=== PATIENT | female | born 1935 | race Caucasian/White ===

== ENCOUNTER 2017-04-18 09:34 | Outpatient (CLI) | payer MEDICARE, OTHER | END 2017-04-18 09:35 | disposition critical access hospital (66) | LOC: EMS 09:34 | PROVIDERS: ATTEND Surgery | DX: R40.4 Transient alteration of awareness (principal) | CPT/HCPCS: A0425; A0429 ==

== ENCOUNTER 2017-04-18 09:49 | Inpatient (IN) | payer MEDICARE, OTHER ==
--- NOTE | 2017-04-18 10:12 | ED Physician Documentation ---
History of Present Illness - Stated complaint Stated Complaint: ALOC - Chief complaint Chief Complaint: Neuro - Additonal information Additional information: hx from pt 81 f new to [facility] and apparently [place] as we have no old records based on meds suspect pt has HTN DM hypothyroid parkinsons apparently she fell yesteday and hit her R shoulder and side of her head but was OK after thsi AM she was found sitting on side of her bed minimally responsive and incontinent with pinpoint pupils (not on narcotics) pt denies any pain - no COLLINS CP AP does report cough with phlegm no NVD urinary incont Review of Systems Constitutional: denies: Fever, Chills Cardiac: denies: Chest pain / pressure Respiratory: reports: Cough. denies: Dyspnea GI: denies: Abdominal Pain, Nausea, Vomiting, Diarrhea : reports: Incontinent Neurologic: reports: Altered mental status, Head injury Endocrine: denies: Easy bruising / bleeding Immunocompromised: denies: Immunocompromised PD PAST MEDICAL HISTORY - Allergies Allergies/Adverse Reactions: Allergies Allergy/AdvReac Type Severity Reaction Status Date / Time ciprofloxacin [From Cipro] Allergy Unknown Verified 04/18/17 10:11 ciprofloxacin HCl * Allergy Unknown Verified 04/18/17 10:11 [From Cipro] hydromorphone HCl * Allergy Unknown Verified 04/18/17 10:11 [From Dilaudid] levofloxacin [From Levaquin] Allergy Unknown Verified 04/18/17 10:11 sertraline HCl * Allergy Unknown Verified 04/18/17 10:11 [From Zoloft] PD ED PE NORMAL - Vitals Vital signs reviewed: Yes - General General: No: Alert and oriented X 3 (X2 person and place, slow to answer) - HEENT HEENT: Other (bruise to right jewish) - Neck Neck: No bony TTP (but altered so will image) - Cardiac Cardiac: RRR - Respiratory Respiratory: No respiratory distress, Clear bilaterally - Abdomen Abdomen: Soft, Non tender - Derm Derm: Normal color - Extremities Extremities: No deformity - 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 No: Alert and oriented X 3 (X 2) - Psych Psych: Other (sleepy) Results - Vitals Vitals: Vital Signs - 24 hr 04/18/17 04/18/17 04/18/17 09:55 11:04 11:05 Temperature 36.6 C Heart Rate 73 68 69 Respiratory 16 16 20 Rate Blood Pressure 149/73 H 144/70 H 139/74 H O2 Saturation 97 98 100 04/18/17 12:17 Temperature Heart Rate 73 Respiratory 20 Rate Blood Pressure 150/73 H O2 Saturation 97 Oxygen O2 Source Room air - EKG (time done) 1004 Rate: Rate (enter#) (71) Rhythm: NSR [place]: LAD, Anterior hemiblock Intervals: Normal SD, RBBB Ischemia: Normal ST segments - Labs Labs: Laboratory Tests 04/18/17 04/18/17 04/18/17 10:04 11:03 11:03 WBC 12.0 H RBC 3.19 L Hgb 8.8 L Hct 27.0 L MCV 84.6 MCH 27.6 MCHC 32.6 RDW 14.6 Plt Count 470 H MPV 5.4 L Neut # 8.9 H Lymph # 1.8 [place] # 1.1 H Eos # 0.1 Baso # 0.1 Absolute Nucleated RBC 0.01 Nucleated RBCs 0.1 Sodium 135 Potassium 4.0 Chloride 102 Carbon Dioxide 26 Anion Gap 7.0 BUN 21 H Creatinine 0.8 Estimated GFR (MDRD) 69 L Glucose 111 H Calcium 8.5 Total Bilirubin 0.5 AST 20 ALT < 10 L Alkaline Phosphatase 171 H Troponin I Total Protein 6.8 Albumin 3.0 L Globulin 3.8 Albumin/Globulin Ratio 0.8 L Lipase 13 L Urine Color YELLOW Urine Clarity CLEAR Urine pH 6.0 Ur Specific [place] <=1.005 Urine Protein NEGATIVE Urine Glucose (UA) NEGATIVE Urine Ketones NEGATIVE Urine Occult Blood NEGATIVE Urine Nitrite POSITIVE H Urine Bilirubin NEGATIVE Urine Urobilinogen 0.2 (NORMAL) Ur Leukocyte Esterase SMALL H Urine RBC 0-5 Urine WBC >25 H Urine WBC Clumps PRESENT Ur Squamous Epith Cells FEW Squamous Amorphous Sediment Moderate Urine Bacteria Many H Ur Microscopic Review INDICATED Urine Culture Comments INDICATED Urine Opiates Screen NEGATIVE Ur Oxycodone Screen NEGATIVE Urine Methadone Screen NEGATIVE Ur Propoxyphene Screen NEGATIVE Ur Barbiturates Screen NEGATIVE Ur Tricyclics Screen NEGATIVE Ur Phencyclidine Scrn NEGATIVE Ur Amphetamine Screen NEGATIVE U Methamphetamines Scrn NEGATIVE U Benzodiazepines Scrn NEGATIVE Urine Cocaine Screen NEGATIVE U Cannabinoids Screen NEGATIVE 04/18/17 11:03 WBC RBC Hgb Hct MCV MCH MCHC RDW Plt Count MPV Neut # Lymph # [place] # Eos # Baso # Absolute Nucleated RBC Nucleated RBCs Sodium Potassium Chloride Carbon Dioxide Anion Gap BUN Creatinine Estimated GFR (MDRD) Glucose Calcium Total Bilirubin AST ALT Alkaline Phosphatase Troponin I < 0.04 Total Protein Albumin Globulin Albumin/Globulin Ratio Lipase Urine Color Urine Clarity Urine pH Ur Specific [place] Urine Protein Urine Glucose (UA) Urine Ketones Urine Occult Blood Urine Nitrite Urine Bilirubin Urine Urobilinogen Ur Leukocyte Esterase Urine RBC Urine WBC Urine WBC Clumps Ur Squamous Epith Cells Amorphous Sediment Urine Bacteria Ur Microscopic Review Urine Culture Comments Urine Opiates Screen Ur Oxycodone Screen Urine Methadone Screen Ur Propoxyphene Screen Ur Barbiturates Screen Ur Tricyclics Screen Ur Phencyclidine Scrn Ur Amphetamine Screen U Methamphetamines Scrn U Benzodiazepines Scrn Urine Cocaine Screen U Cannabinoids Screen - Rads (name of study) CTH Radiology: See rad report (no acute) CT CS Radiology: See rad report (degen changes and HNP but no fx) PD MEDICAL DECISION MAKING - ED course ED course: UTI with profound AMS - given rocephin and will admit also anemic, no old to compare, hemodynamically stable, rec occult stools while admitted and iron studies etc Departure - Departure Disposition: 66 [facility] DC/Xfer Clinical Impression: Altered mental status Qualifiers: Altered mental status type: stupor Qualified Code(s): R40.1 - Stupor Urinary tract infection Qualifiers: Urinary tract infection type: site unspecified Hematuria presence: without hematuria Qualified Code(s): N39.0 - Urinary tract infection, site not specified Anemia Qualifiers: Anemia type: unspecified type Qualified Code(s): D64.9 - Anemia, unspecified Condition: Fair
[2017-04-18 10:25] LABS: BILIRUBIN,URINE NEGATIVE (NEGATIVE)
[2017-04-18 10:28] LABS: UA w/ MICROSCOPIC CHARGE YES
[2017-04-18 10:47] LABS: WBC,URINE >25 /HPF (0-5)
[2017-04-18 10:48] LABS: UR CULTURE IF IND INDICATED
--- NOTE | 2017-04-18 10:55 | CT Preliminary Report ---
Exam: CT Head W/O IMPRESSION: Generalized age-related cortical atrophic changes without evidence of acute intracranial abnormality. [facility] SITE ID: [id number]
--- NOTE | 2017-04-18 11:01 | CT Preliminary Report ---
Exam: CT Cervical Spine W/O IMPRESSION: 1. Arthritic changes at the C1-C2 articulation anteriorly. Laterally, these articulations are normal. No fractures or bony lesions. No scoliosis or listhesis. Mild fatty atrophy of the multifidus muscle s also seen. 2. C2-C3 show some disk space height loss otherwise normal and intact. 3. C3-C4 shows prominent facets and mild central bony bar. No central or foraminal stenosis. 4. C4-C5 shows disk space height loss and severe left and moderate right foraminal stenosis. Mild buck tral stenosis. Disk osteophyte complexes present. 5. C5-C6 shows disk osteophyte complex, AP distance is 12 mm. Mild central stenosis and mild bilatera l foraminal stenosis. 6. C6-C7 shows broad-based disk bulge, no central or foraminal stenosis. 7. C7-T1 show some disk space height loss, otherwise unremarkable. [facility] SITE ID: [id number]
--- NOTE | 2017-04-18 11:04 | CT Report ---
EXAM: CT HEAD EXAM DATE: 04/18/2017 10:37 a.m. CLINICAL HISTORY: Altered mental status. COMPARISON: None. TECHNIQUE: Multiaxial CT images were obtained from the foramen magnum to the vertex. IV contrast: Non e. Reformats: Coronal. In accordance with CT protocol optimization, one or more of the following dose reduction techniques w ere utilized for this exam: automated exposure control, adjustment of mA and/or KV based on patient s ize, or use of iterative reconstructive technique. FINDINGS: Parenchyma: No intraparenchymal hemorrhage. No evidence of mass, midline shift, or CT findings of acu te infarction. Lopez-white differentiation is distinct. Extraaxial Spaces: Normal for age. No subdural or epidural collections identified. Ventricles: The ventricles and cortical sulci are enlarged, consistent with age-related tissue loss. Sinuses: Imaged paranasal sinuses, orbits, and mastoids show no significant abnormality. Bones: No evidence of fracture or calvarial defect. Other: Diffuse chronic microangiopathic white matter changes are evident. IMPRESSION: Generalized age-related cortical atrophic changes without evidence of acute intracranial abnormality. [facility] Referring Provider Line: [phone] SITE ID: [id number]
[2017-04-18 11:09] LABS: BASOPHILS # (AUTO) 0.1 10^3/uL (0.0-0.1); BASOPHILS % (AUTO) 0.6 %; EOSINOPHILS # (AUTO) 0.1 10^3/uL (0.0-0.7); EOSINOPHILS % (AUTO) 0.9 %; HGB - HEMOGLOBIN 8.8 g/dL (12.0-16.0); LYMPHOCYTES # (AUTO) 1.8 10^3/uL (1.5-3.5); LYMPHOCYTES % (AUTO) 15.1 %; MEAN CORPUSCULAR HEMOGLOBIN 27.6 pg (27.0-31.0); MEAN CORPUSCULAR HGB CONC 32.6 g/dL (32.0-36.0); MEAN CORPUSCULAR VOLUME 84.6 fL (81.0-99.0); MEAN PLATELET VOLUME 5.4 fL (7.9-10.8); MONOCYTES # (AUTO) 1.1 10^3/uL (0.0-1.0); MONOCYTES % (AUTO) 9.5 %; NEUTROPHILS # (AUTO) 8.9 10^3/uL (1.5-6.6); NEUTROPHILS % (AUTO) 73.9 %; NUCLEATED RED BLOOD CELLS AUTO 0.1 /100WBC; RED BLOOD COUNT 3.19 10^6/uL (4.20-5.40); RED CELL DISTRIBUTION WIDTH 14.6 % (12.0-15.0)
[2017-04-18 11:20] LABS: ALBUMIN/GLOBULIN RATIO 0.8 (1.0-2.2); BILIRUBIN,TOTAL 0.5 mg/dL (0.2-1.0); BUN - BLOOD UREA NITROGEN 21 mg/dL (6-20); CALCIUM 8.5 mg/dL (8.5-10.3); CARBON DIOXIDE - CO2 26 mmol/L (21-32); CHLORIDE 102 mmol/L (101-111); CREATININE 0.8 mg/dL (0.4-1.0); GFR - MDRD 69 (>89); GLUCOSE 111 mg/dL (70-100); LIPASE 13 U/L (22-51); SODIUM 135 mmol/L (135-145); TOTAL PROTEIN 6.8 g/dL (6.7-8.2)
--- NOTE | 2017-04-18 11:40 | CT Report ---
EXAM: CT CERVICAL SPINE WITHOUT CONTRAST DATE: 04/18/2017 10:38 AM HISTORY: Neck pain. COMPARISONS: None. TECHNIQUE: Thin-section axial images were acquired of the cervical spine without contrast. Post-proce ssing: Coronal and sagittal reformats. Other: None. In accordance with CT protocol optimization, one or more of the following dose reduction techniques w ere utilized for this exam: automated exposure control, adjustment of mA and/or KV based on patient s ize, or use of iterative reconstructive technique. FINDINGS: Alignment: Normal. No scoliosis or spondylolisthesis. Bones: No fracture or bone lesion. Interspace Levels/Facets: C1-C2: Arthritic changes at the anterior C1-C2 articulation. Pseudoarticulation with the odontoid and clivus. Lateral articulations are normal. C2-C3: Disk space height loss, otherwise normal and intact. C3-C4: Prominent facets. Mild central bony bar is present. No stenosis. C4-C5: Disk space height loss, severe left and moderate right foraminal stenosis. Mild central stenos is secondary to disk/osteophyte complex. C5-C6: Disk/osteophyte complex at this level is also noted, with some indentation of the central concepcion l. AP distance is 12 mm. Mild central stenosis, mild bilateral foraminal stenosis. C6-C7: Broad-based disk bulge is noted. Prominent facets. No central or foraminal stenosis. C7-T1: Disk space height loss, otherwise unremarkable. Musculature: Mild fatty atrophy of the multifidus musculature. Other: The paravertebral and prevertebral soft tissues are normal. The lung apices are clear. IMPRESSION: 1. Arthritic changes at the C1-C2 articulation anteriorly. Laterally, these articulations are normal. No fractures or bony lesions. No scoliosis or listhesis. Mild fatty atrophy of the multifidus muscle also seen. 2. C2-C3 shows some disk space height loss, otherwise normal and intact. 3. C3-C4 shows prominent facets and a mild central bony bar. No central or foraminal stenosis. 4. C4-C5 shows disk space height loss and severe left and moderate right foraminal stenosis. Mild buck tral stenosis. Disk/osteophyte complex is present. 5. C5-C6 shows disk/osteophyte complex, AP distance is 12 mm. Mild central stenosis and mild bilatera l foraminal stenosis. 6. C6-C7 shows a broad-based disk bulge, no central or foraminal stenosis. 7. C7-T1 shows some disk space height loss, otherwise unremarkable. [facility] Referring Provider Line: [phone] SITE ID: [id number]
[2017-04-18] MEDS ORDERED: ONDANSETRON 4 MG/2 ML VIAL IVP PRN (14:38)
[2017-04-18] MEDS ORDERED: SODIUM CHLORIDE FLUSH 0.9% 10 ML SYRINGE IVP PRN (14:38)
[2017-04-18] MEDS ORDERED: ACETAMINOPHEN 325 MG TABLET PO PRN (14:38)
[2017-04-18] MEDS ORDERED: cefTRIAXone 1 GM VIAL IVP STA (14:46)
[2017-04-18 15:26] LABS: IMMATURE RETIC FRACTION 0.43; RED BLOOD COUNT 3.21 10^6/uL (4.20-5.40)
[2017-04-18 15:50] LABS: HEMOGLOBIN A1C 0.54 g/dL
--- NOTE | 2017-04-18 16:14 | HISTORY & PHYSICAL EXAMINATION ---
Chief Complaint - Chief Complaint Chief Complaint: altered mental status History of Present Illness - Admitted From Admitted From:: emergence department - History Obtained From Records Reviewed: reviewed History obtained from: records and ER provider - History of Present Illness HPI Comment/Other: This is a 81-year-old Cauc[place] female with significant past medical history of HTN, DM2, hypothyroid, Parkinsons, who present emergence department for evaluation of altered mental status. Patient is alert but a very poor historian due to current medical condition. When waking up the patient, she open her eye then she fall into sleep again. UDS test is negative. UA reveals positive of UTI. Patient's vital sign is stable. Patient appears new to [facility], we did not have her old records. Per ER provider reports, apparently she fell yesterday, no injury was reported. At today morning, patient was found minimally responsive. Then patient was brought to emergence department for further evaluation. CT of head unremarkable. CT of C-spinal at C4-5 reveals severe left and moderate right foraminal stenosis. lab test reveals significant results as BUN 21, creatinine 0.8, glucose 111, A1C 7.4, WBC 12, HGB 8.8, HCT 27, Plt 470, Alkaline phosphatase 171. patient is admitted for evaluation of altered mental status. Review of Systems - Other Findings Other Findings: patient could not provide information for ROS History - Past Medical History Cardiovascular: reports: Hypertension Neuro: reports: Parkinson's Endocrine/Autoimmune: reports: Type 2 diabetes, HyPOthyroidism GI: reports: GERD Musculoskeletal: reports: Osteoarthritis Other Past Medical History: Non Hodgkins lymphoma - Family & Social History Family History Comment/Other: patient could not provide information due to current patient's medical condition. - POLST Patient has POLST: Yes Meds/Allgy - Home Medications Home Medications: Ambulatory Orders Medication Instructions Recorded Confirmed Aspirin Chewable [St 81 mg PO DAILY 04/18/17 04/18/17 Aspirin] Atenolol 25 mg PO DAILY 04/18/17 04/18/17 Atenolol 50 mg PO DAILY PM 04/18/17 04/18/17 Calcitonin,[place],Synthetic 1 spray NS DAILY 04/18/17 04/18/17 [Miacalcin] Calcium Carbonate [Tums (Calcium 1,000 mg PO DAILY 04/18/17 04/18/17 Carbonate 500mg)] Carbidopa/Levodopa [Carbidopa-Levo 1 each PO TID 04/18/17 04/18/17 ER 50-200 Tab] Carbidopa/Levodopa 0.5 each PO TID 04/18/17 04/18/17 [Carbidopa-Levodopa 25-100 Tab] Cholecalciferol (Vitamin D3) 4,000 unit PO QDAC 04/18/17 04/18/17 [Vitamin D] Entacapone 100 mg PO QDLUNCH 04/18/17 04/18/17 Entacapone 200 mg PO BID 04/18/17 04/18/17 Glipizide [Glipizide ER] 5 mg PO DAILY 04/18/17 04/18/17 Lactobacillus Acidophilus 1 each PO DAILY 04/18/17 04/18/17 [Acidophilus] Levothyroxine [Synthroid] 175 mcg PO QDAC 04/18/17 04/18/17 Lisinopril 20 mg PO DAILY 04/18/17 04/18/17 Meclizine HCl [Motion Sickness 25 mg PO Q4H PRN 04/18/17 04/18/17 Relief] Propylene Glycol/Peg 400 1 drops OP Q2H 04/18/17 04/18/17 [Lubricant Eye Drops] Ropinirole HCl 1 mg PO TID 04/18/17 04/18/17 raNITIdine [Zantac] 150 mg PO BID 04/18/17 04/18/17 - Allergies Allergies/Adverse Reactions: Allergies Allergy/AdvReac Type Severity Reaction Status Date / Time ciprofloxacin [From Cipro] Allergy Unknown Verified 04/18/17 10:11 ciprofloxacin HCl * Allergy Unknown Verified 04/18/17 10:11 [From Cipro] hydromorphone HCl * Allergy Unknown Verified 04/18/17 10:11 [From Dilaudid] levofloxacin [From Levaquin] Allergy Unknown Verified 04/18/17 10:11 sertraline HCl * Allergy Unknown Verified 04/18/17 10:11 [From Zoloft] Exam - Vital Signs Reviewed Vital Signs: Yes Vital Signs: Vital Signs x48h Temp Pulse Resp BP Pulse Ox 04/18/17 15:01 72 18 160/76 H 98 04/18/17 13:54 69 14 154/75 H 99 04/18/17 12:17 73 20 150/73 H 97 04/18/17 11:05 69 20 139/74 H 100 04/18/17 11:04 68 16 144/70 H 98 04/18/17 09:55 36.6 C 73 16 149/73 H 97 - Physical Exam General Appearance: positive: No acute distress, Alert. negative: Anxious Eyes Bilateral: positive: Normal inspection, PERRL. negative: No lid inflammation, Conjunctivae nml ENT: positive: ENT inspection nml, Pharynx nml, No signs of dehydration. negative: Purulent nasal drainage, Pharyngeal erythema Neck: positive: Nml inspection, Thyroid nml, Trachea midline. negative: Thyromegaly, Lymphadenopathy (R), Lymphadenopathy (L), Tracheal deviation Respiratory: positive: Chest non-tender, No respiratory distress, Breath sounds nml. negative: Wheezes, Rales, Rhonchi Cardiovascular: positive: Regular rate & rhythm, No murmur, No gallop. negative : Tachycardia, Bradycardia, Systolic murmur, Diastolic murmur Peripheral Pulses: positive: 2+ Abdomen: positive: Non-tender, Nml bowel sounds, No distention. negative: Tenderness, Guarding, Rebound Back: positive: Nml inspection. negative: CVA tenderness (R), CVA tenderness (L ) Skin: positive: Color nml, No rash, Warm, Dry. negative: Cyanosis, Diaphoresis , Skin rash Extremities: positive: Non-tender, Nml appearance. negative: Joint swelling, Jacquie's sign/cords Neurologic/Psychiatric: positive: Sensation nml. negative: Facial droop, Slurred/abnml speech, Depressed mood/affect Conclusion/Plan - Problem List (1) Altered mental status Conclusion/Plan: may secondary to UTI, delirium. UDS is negative test B12, TSH ,ammonia neuro check on tele, vital Q4H Qualifiers: Altered mental status type: disorientation Qualified Code(s): R41.0 - Disorientation, unspecified (2) UTI (urinary tract infection) Conclusion/Plan: rocephin, follow up UA culture Qualifiers: Urinary tract infection type: site unspecified Hematuria presence: without hematuria Qualified Code(s): N39.0 - Urinary tract infection, site not specified (3) Anemia Conclusion/Plan: HGB now 8.8, HCT 27. order Occult stool blood, iron study setting, follow up Qualifiers: Anemia type: unspecified type Qualified Code(s): D64.9 - Anemia, unspecified (4) DM2 (diabetes mellitus, type 2) Conclusion/Plan: slide scale now. check A1C will resume home medication after reconciliation. (5) HTN (hypertension) Conclusion/Plan: will resume home meds, vital, tele monitor (6) Hypothyroid Conclusion/Plan: check TSH, resume home meds (7) Parkinson disease Conclusion/Plan: stable, will resume home meds after reconciliation of home meds (8) DVT prophylaxis Conclusion/Plan: SCD and with Lovenox - Lab Results Fish Bones: 04/18/17 11:03 04/18/17 11:03 Issues/Core Measures - Anticipated LOS Anticipated Stay Length: 2 or more midnights (pt is appear mental status altered , UTI, profound anemia, may need 2 or more nights)
[2017-04-18 16:53] LABS: IRON 7 ug/dL (28-170); TOTAL IRON BINDING CAPACITY 295 ug/dL (250-450); TRANSFERRIN 211 mg/dL (192-382)
[2017-04-18] MEDS ORDERED: cefTRIAXone 1 GM in SODIUM CHLORIDE 0.9% 100ML 100 ML IV SCH (17:00)
[2017-04-18] MEDS ORDERED: ENALAPRILAT 1.25 MG/ML VIAL IVP PRN (17:02)
[2017-04-18] MEDS: SODIUM CHLORIDE FLUSH 0.9% 10 ML SYRINGE IVP SCH (17:08)
[2017-04-18] MEDS: INSULIN ASPART 300 UNIT/3 ML PEN SUBQ SCH ×2 (17:10→21:26)
[2017-04-18] MEDS: SODIUM CHLORIDE 0.9% 1,000 ML IV SCH (17:10)
[2017-04-18 17:18] LABS: FERRITIN 29.6 ng/mL (11.0-306.8)
[2017-04-18] MEDS ORDERED: MECLIZINE 12.5 MG TABLET PO PRN (17:43)
[2017-04-18] MEDS ORDERED: ZINC OXIDE 20% OINT 28.35 GM TUBE TOP ONE (20:20)
[2017-04-18] MEDS: CARBOXYMETHYLCELLULOSE OPHTH DROPS EACHEYE SCH ×2 (21:48→22:12)
[2017-04-18] MEDS: CARBIDOPA/LEVODOPA 25 MG/100 MG TABLET PO SCH (21:49)
[2017-04-18] MEDS: ATENOLOL 25 MG TABLET PO SCH (21:49)
[2017-04-18] MEDS: CARBIDOPA/LEVODOPA ER 50 MG/200 MG TABLET PO SCH (21:50)
[2017-04-19] MEDS: CARBOXYMETHYLCELLULOSE OPHTH DROPS EACHEYE SCH ×12 (00:21→21:41)
[2017-04-19] MEDS: SODIUM CHLORIDE 0.9% 1,000 ML IV SCH ×2 (06:00→16:57)
[2017-04-19] MEDS: SODIUM CHLORIDE FLUSH 0.9% 10 ML SYRINGE IVP SCH ×3 (06:03→21:41)
[2017-04-19] MEDS: CARBIDOPA/LEVODOPA 25 MG/100 MG TABLET PO SCH ×3 (06:13→21:41)
[2017-04-19] MEDS: CARBIDOPA/LEVODOPA ER 50 MG/200 MG TABLET PO SCH ×3 (06:13→21:41)
[2017-04-19] MEDS: LEVOTHYROXINE 100 MCG TABLET PO SCH (06:14)
[2017-04-19] MEDS: LEVOTHYROXINE 75 MCG TABLET PO SCH (06:14)
[2017-04-19 06:51] LABS: BASOPHILS # (AUTO) 0.1 10^3/uL (0.0-0.1); BASOPHILS % (AUTO) 1.1 %; EOSINOPHILS # (AUTO) 0.2 10^3/uL (0.0-0.7); EOSINOPHILS % (AUTO) 1.5 %; HCT - HEMATOCRIT 27.9 % (37.0-47.0); HGB - HEMOGLOBIN 8.9 g/dL (12.0-16.0); LYMPHOCYTES # (AUTO) 2.1 10^3/uL (1.5-3.5); LYMPHOCYTES % (AUTO) 18.7 %; MEAN CORPUSCULAR HEMOGLOBIN 27.8 pg (27.0-31.0); MEAN CORPUSCULAR HGB CONC 32.1 g/dL (32.0-36.0); MEAN CORPUSCULAR VOLUME 86.8 fL (81.0-99.0); MONOCYTES # (AUTO) 1.1 10^3/uL (0.0-1.0); MONOCYTES % (AUTO) 9.9 %; NEUTROPHILS # (AUTO) 7.6 10^3/uL (1.5-6.6); NEUTROPHILS % (AUTO) 68.8 %; RED BLOOD COUNT 3.21 10^6/uL (4.20-5.40); RED CELL DISTRIBUTION WIDTH 14.7 % (12.0-15.0); UNCORRECTED WHITE BLOOD COUNT 11.1 x10^3/uL; WHITE BLOOD COUNT 11.1 x10^3/uL (4.8-10.8)
[2017-04-19 07:15] LABS: ALBUMIN/GLOBULIN RATIO 0.7 (1.0-2.2); BILIRUBIN,TOTAL 0.5 mg/dL (0.2-1.0); BUN - BLOOD UREA NITROGEN 21 mg/dL (6-20); CALCIUM 8.4 mg/dL (8.5-10.3); CARBON DIOXIDE - CO2 24 mmol/L (21-32); CHLORIDE 109 mmol/L (101-111); CREATININE 0.7 mg/dL (0.4-1.0); GFR - MDRD 81 (>89); GLUCOSE 117 mg/dL (70-100); MAGNESIUM 1.7 mg/dL (1.7-2.8); POTASSIUM 3.7 mmol/L (3.5-5.0); SODIUM 140 mmol/L (135-145); TOTAL PROTEIN 6.2 g/dL (6.7-8.2)
[2017-04-19] MEDS ORDERED: LACTOB/S.THERMOPHL/BIFIDO CAPSULE PO SCH (08:00)
[2017-04-19] MEDS: INSULIN ASPART 300 UNIT/3 ML PEN SUBQ SCH ×4 (08:35→21:41)
[2017-04-19] MEDS ORDERED: cefTRIAXone 1 GM VIAL IVP SCH (09:00)
[2017-04-19] MEDS ORDERED: CALCIUM CARBONATE CHEW 500 MG TABLET PO SCH (09:00)
[2017-04-19] MEDS ORDERED: cefTRIAXone 1 GM in SODIUM CHLORIDE 0.9% 100ML 100 ML IV SCH (09:00)
[2017-04-19] MEDS: ATENOLOL 25 MG TABLET PO SCH ×2 (09:28→21:40)
[2017-04-19] MEDS: CHOLECALCIFEROL 1,000 UNIT TABLET PO SCH (09:29)
[2017-04-19] MEDS: ASPIRIN CHEW 81 MG TABLET PO SCH (09:49)
[2017-04-19] MEDS: FAMOTIDINE 20 MG TABLET PO SCH (09:50)
[2017-04-19] MEDS: CALCITONIN NASAL SPRAY NAS SCH (10:23)
[2017-04-19] MEDS: ENOXAPARIN 40 MG/0.4 ML SYRINGE SUBQ SCH (10:32)
[2017-04-19] MEDS: POLYETHYLENE GLYCOL 3350 17 GM PACKET PO SCH (10:32)
[2017-04-19] MEDS: LISINOPRIL 20 MG TABLET PO SCH (10:36)
[2017-04-19] MEDS ORDERED: CALAMINE/ZINC OXIDE 118 ML BOTTLE TOP PRN (12:26)
[2017-04-19] MEDS: FERROUS SULFATE 325 MG TABLET PO SCH (16:57)
[2017-04-19] MEDS: SACCHAROMYCES BOULARDII 250 MG CAPSULE PO SCH (16:57)
[2017-04-19] MEDS: cloNIDine 0.1 MG TABLET PO PRN (16:58)
--- NOTE | 2017-04-19 17:02 | PROVIDER PROGRESS NOTE ---
Assessment/Plan - Problem List (1) Altered mental status Qualifiers: Altered mental status type: disorientation Qualified Code(s): R41.0 - Disorientation, unspecified Assessment/Plan: Conclusion/Plan: Suspect secondary to UTI. Can not exclude delerium form other sources. Has improved but does not feel she is at her baseline. Qualifiers: Altered mental status type: disorientation Qualified Code(s): R41.0 - Disorientation, unspecified (2) UTI (urinary tract infection) Conclusion/Plan: PT pulled her IV out and is refusing new IV placement. UA with E-Coli Rocephin Discontinued and started Septra. Qualifiers: Urinary tract infection type: site unspecified Hematuria presence: without hematuria Qualified Code(s): N39.0 - Urinary tract infection, site not specified (3) Anemia Conclusion/Plan: HGB now 8.8, HCT 27. Stable Low Iron Started on Iron replacement today Qualifiers: Anemia type: unspecified type Qualified Code(s): D64.9 - Anemia, unspecified (4) DM2 (diabetes mellitus, type 2) Conclusion/Plan: Continue Insulin sliding scale coverage (5) HTN (hypertension) Conclusion/Plan: Continue resume home meds PRN medications ordered for hypertensive urgency (6) Hypothyroid Conclusion/Plan: check TSH, resume home meds (7) Parkinson disease Conclusion/Plan: Increased tremors today Restarted home medications with improvement - Current Meds Current Meds: Current Medications Generic Name Dose Route Start Last Admin Trade Name Freq PRN Reason Stop Dose Admin Aspirin 81 mg 04/19/17 09:00 04/19/17 09:49 [facility] Aspirin PO 81 mg DAILY NERISSA Administration Atenolol 25 mg 04/19/17 09:00 04/19/17 09:28 Tenormin PO 25 mg DAILY NERISSA Administration Atenolol 50 mg 04/18/17 21:00 04/18/17 21:49 Tenormin PO 50 mg QPM NERISSA Administration Calcitonin [place] 1 sprays 04/19/17 09:00 04/19/17 10:23 Fortical [place] 1 spr DAILY NERISSA Administration Calcium Carbonate/Glycine 1,000 mg 04/19/17 09:00 04/19/17 09:51 Tums PO 1,000 mg DAILY NERISSA Administration Carbidopa/Levodopa 0.5 tab 04/18/17 22:00 04/19/17 14:33 Sinemet 25 Mg/100 Mg PO 0.5 tab TID NERISSA Administration Carbidopa/Levodopa 1 tab 04/18/17 22:00 04/19/17 14:33 Sinemet Cr 50 Mg/200 Mg PO 1 tab TID NERISSA Administration Carboxymethylcellulose 1 drops 04/18/17 23:23 04/19/17 15:29 Refresh 1% Ophth Drops EACHEYE Not Given Q2H NERISSA Cholecalciferol 4,000 unit 04/19/17 09:00 04/19/17 09:29 Vitamin D3 PO 4,000 unit DAILY NERISSA Administration Enoxaparin Sodium 40 mg 04/19/17 09:00 04/19/17 10:32 Lovenox SUBQ 40 mg DAILY NERISSA Administration Famotidine 20 mg 04/19/17 09:00 04/19/17 09:50 Pepcid PO 20 mg DAILY NERISSA Administration Glipizide 5 mg 04/19/17 08:00 04/19/17 15:37 Glucotrol Xl PO 5 mg DAILYWM NERISSA Administration Ceftriaxone Sodium 1 gm/ 100 mls @ 100 mls/hr 04/19/17 09:00 04/19/17 09:58 Sodium Chloride IV 100 mls/hr DAILY NERISSA Administration Sodium Chloride 1,000 mls @ 83.333 mls/hr 04/18/17 17:00 04/19/17 06:00 Normal Saline 0.9% IV 83.333 mls/hr .Q12H NERISSA Administration Insulin Aspart 1 - 5 unit 04/18/17 17:00 04/19/17 12:08 Novolog SUBQ 2 unit 0800,1200,1700,2100 NERISSA Administration Protocol Levothyroxine Sodium 100 mcg 04/19/17 07:00 04/19/17 06:14 Synthroid PO 100 mcg QDAC NERISSA Administration Levothyroxine Sodium 75 mcg 04/19/17 07:00 04/19/17 06:14 Synthroid PO 75 mcg QDAC NERISSA Administration Lisinopril 20 mg 04/19/17 09:00 04/19/17 10:36 Zestril PO Not Given DAILY NERISSA Polyethylene Glycol 17 gm 04/19/17 09:00 04/19/17 10:32 Miralax PO 17 gm DAILY NERISSA Administration Sodium Chloride 10 ml 04/18/17 14:38 04/19/17 10:14 Normal Saline Flush 0.9% IVP 10 ml PRN PRN Administration NEEDED PER PROVIDER ORDERS Sodium Chloride 10 ml 04/18/17 22:00 04/19/17 14:38 Normal Saline Flush 0.9% IVP Not Given Q8HR NERISSA - Lab Result Fish Bone Diagrams: 04/19/17 06:26 04/19/17 06:26 - Additional Planning Condition/Complexity: Improved My Orders: My Active Orders 04/19/17 17:00 Ferrous Sulfate [Feosol] 325 mg PO BIDWM Saccharomyces Boulardii [Florastor] 250 mg PO BIDWM Plan Discussed with:: Patient Time Spent: 15-30 minutes Subjective - Subjective Patient Reports: Feeling Better (Feels her mentation is improved but not at baseline) Nursing Reports: Confused Objective Vital Signs: Vital Signs - 24 hr 04/18/17 04/19/17 04/19/17 21:00 00:35 05:45 Temperature 37.2 C 37.5 C 36.9 C Heart Rate [ Brachial] Heart Rate [ 80 75 78 Radial] Respiratory 16 16 16 Rate Blood Pressure 165/72 H 152/66 H 168/74 H [Left Brachial artery] Blood Pressure [Right Brachial artery] O2 Saturation 93 93 96 04/19/17 04/19/17 04/19/17 07:35 11:38 16:28 Temperature 36.5 C 36.5 C 36.6 C Heart Rate [ 70 92 74 Brachial] Heart Rate [ Radial] Respiratory 16 18 16 Rate Blood Pressure 155/63 H 175/75 H [Left Brachial artery] Blood Pressure 133/74 H [Right Brachial artery] O2 Saturation 95 90 L 97 Oxygen O2 Source Room air I&O (Last 24 Hrs): Intake and Output Totals x24h 04/17/17 04/18/17 04/19/17 23:59 23:59 23:59 Intake Total 791 823 Balance 791 823 General: Alert, No acute distress HEENT: PERRLA, EOMI Neck: No JVD Neuro: Alert, CN 2-12 Grossly Intact Cardiovascular: Regular rate Respiratory: No respiratory distress Abdomen: Normal bowel sounds Skin: No rashes, No breakdown, No significant lesion - Results Results: Laboratory Results WBC 11.1 x10^3/uL (4.8-10.8) H 04/19/17 06:26 RBC 3.21 10^6/uL (4.20-5.40) L 04/19/17 06:26 Hgb 8.9 g/dL (12.0-16.0) L 04/19/17 06:26 Hct 27.9 % (37.0-47.0) L 04/19/17 06:26 MCV 86.8 fL (81.0-99.0) 04/19/17 06:26 MCH 27.8 pg (27.0-31.0) 04/19/17 06:26 MCHC 32.1 g/dL (32.0-36.0) 04/19/17 06:26 RDW 14.7 % (12.0-15.0) 04/19/17 06:26 Plt Count 448 10^3/uL (130-450) 04/19/17 06:26 MPV 6.0 fL (7.9-10.8) L 04/19/17 06:26 Reticulocyte % (Auto) 1.09 % (0.5-2.3) 04/18/17 11:03 Neut # 7.6 10^3/uL (1.5-6.6) H 04/19/17 06:26 Lymph # 2.1 10^3/uL (1.5-3.5) 04/19/17 06:26 [place] # 1.1 10^3/uL (0.0-1.0) H 04/19/17 06:26 Eos # 0.2 10^3/uL (0.0-0.7) 04/19/17 06:26 Baso # 0.1 10^3/uL (0.0-0.1) 04/19/17 06:26 Absolute Nucleated RBC 0.00 x10^3/uL 04/19/17 06:26 Nucleated RBCs 0.0 /100WBC 04/19/17 06:26 Absolute Retic 0.035 10^6/uL (0.020-0.110) 04/18/17 11:03 Sodium 140 mmol/L (135-145) 04/19/17 06:26 Potassium 3.7 mmol/L (3.5-5.0) 04/19/17 06:26 Chloride 109 mmol/L (101-111) 04/19/17 06:26 Carbon Dioxide 24 mmol/L (21-32) 04/19/17 06:26 Anion Gap 7.0 (6-13) 04/19/17 06:26 BUN 21 mg/dL (6-20) H 04/19/17 06:26 Creatinine 0.7 mg/dL (0.4-1.0) 04/19/17 06:26 Estimated GFR (MDRD) 81 (>89) L 04/19/17 06:26 Glucose 117 mg/dL (70-100) H 04/19/17 06:26 POC Whole Bld Glucose 179 mg/dL (70 - 100) H 04/19/17 16:25 Glycated Hemoglobin 7.4 % (4.6-6.2) H 04/18/17 11:03 Estim Average Glucose 166 (70-100) H 04/18/17 11:03 Calcium 8.4 mg/dL (8.5-10.3) L 04/19/17 06:26 Magnesium 1.7 mg/dL (1.7-2.8) 04/19/17 06:26 Iron 7 ug/dL (28-170) L 04/18/17 16:28 TIBC 295 ug/dL (250-450) 04/18/17 16:28 % Saturation 2 % (20-50) L 04/18/17 16:28 Transferrin 211 mg/dL (192-382) 04/18/17 16:28 Ferritin 29.6 ng/mL (11.0-306.8) 04/18/17 16:28 Total Bilirubin 0.5 mg/dL (0.2-1.0) 04/19/17 06:26 AST 16 IU/L (10-42) 04/19/17 06:26 ALT < 10 IU/L (10-60) L 04/19/17 06:26 Alkaline Phosphatase 145 IU/L (42-121) H 04/19/17 06:26 Ammonia 22.8 umol/L (7-35) 04/18/17 17:08 Lactate Dehydrogenase 55 IU/L (91-225) L 04/18/17 16:28 Troponin I < 0.04 ng/mL (<0.49) 04/18/17 11:03 Total Protein 6.2 g/dL (6.7-8.2) L 04/19/17 06:26 Albumin 2.6 g/dL (3.2-5.5) L 04/19/17 06:26 Globulin 3.6 g/dL (2.1-4.2) 04/19/17 06:26 Albumin/Globulin Ratio 0.7 (1.0-2.2) L 04/19/17 06:26 Lipase 13 U/L (22-51) L 04/18/17 11:03 Vitamin B12 1109 pg/mL (180-914) H 04/19/17 06:26 TSH 8.30 uIU/mL (0.34-5.60) H 04/19/17 06:26 Urine Color YELLOW 04/18/17 10:04 Urine Clarity CLEAR (CLEAR) 04/18/17 10:04 Urine pH 6.0 PH (5.0-7.5) 04/18/17 10:04 Ur Specific [place] <=1.005 (1.002-1.030) 04/18/17 10:04 Urine Protein NEGATIVE mg/dL (NEGATIVE) 04/18/17 10:04 Urine Glucose (UA) NEGATIVE mg/dL (NEGATIVE) 04/18/17 10:04 Urine Ketones NEGATIVE mg/dL (NEGATIVE) 04/18/17 10:04 Urine Occult Blood NEGATIVE (NEGATIVE) 04/18/17 10:04 Urine Nitrite POSITIVE (NEGATIVE) H 04/18/17 10:04 Urine Bilirubin NEGATIVE (NEGATIVE) 04/18/17 10:04 Urine Urobilinogen 0.2 (NORMAL) E.U./dL (NORMAL) 04/18/17 10:04 Ur Leukocyte Esterase SMALL (NEGATIVE) H 04/18/17 10:04 Urine RBC 0-5 /HPF (0-5) 04/18/17 10:04 Urine WBC >25 /HPF (0-5) H 04/18/17 10:04 Urine WBC Clumps PRESENT 04/18/17 10:04 Ur Squamous Epith Cells FEW Squamous (<= Few) 04/18/17 10:04 Amorphous Sediment Moderate /LPF 04/18/17 10:04 Urine Bacteria Many /HPF (None Seen) H 04/18/17 10:04 Ur Microscopic Review INDICATED 04/18/17 10:04 Urine Culture Comments INDICATED 04/18/17 10:04 Urine Opiates Screen NEGATIVE (NEGATIVE) 04/18/17 10:04 Ur Oxycodone Screen NEGATIVE (NEGATIVE) 04/18/17 10:04 Urine Methadone Screen NEGATIVE (NEGATIVE) 04/18/17 10:04 Ur Propoxyphene Screen NEGATIVE (NEGATIVE) 04/18/17 10:04 Ur Barbiturates Screen NEGATIVE (NEGATIVE) 04/18/17 10:04 Ur Tricyclics Screen NEGATIVE (NEGATIVE) 04/18/17 10:04 Ur Phencyclidine Scrn NEGATIVE (NEGATIVE) 04/18/17 10:04 Ur Amphetamine Screen NEGATIVE (NEGATIVE) 04/18/17 10:04 U Methamphetamines Scrn NEGATIVE (NEGATIVE) 04/18/17 10:04 U Benzodiazepines Scrn NEGATIVE (NEGATIVE) 04/18/17 10:04 Urine Cocaine Screen NEGATIVE (NEGATIVE) 04/18/17 10:04 U Cannabinoids Screen NEGATIVE (NEGATIVE) 04/18/17 10:04
[2017-04-19] MEDS: SULFAMETH/TRIMETH DS 800/160 MG TABLET PO SCH (21:40)
[2017-04-19] MEDS: CALCIUM CARBONATE CHEW 500 MG TABLET PO SCH (21:40)
[2017-04-20] MEDS: CARBOXYMETHYLCELLULOSE OPHTH DROPS EACHEYE SCH ×7 (01:23→11:55)
[2017-04-20] MEDS: SODIUM CHLORIDE 0.9% 1,000 ML IV SCH (06:18)
[2017-04-20] MEDS: SODIUM CHLORIDE FLUSH 0.9% 10 ML SYRINGE IVP SCH (06:19)
[2017-04-20] MEDS: LEVOTHYROXINE 100 MCG TABLET PO SCH (06:29)
[2017-04-20] MEDS: CARBIDOPA/LEVODOPA 25 MG/100 MG TABLET PO SCH (07:05)
[2017-04-20] MEDS: CARBIDOPA/LEVODOPA ER 50 MG/200 MG TABLET PO SCH (07:06)
[2017-04-20] MEDS: cloNIDine 0.1 MG TABLET PO PRN (07:06)
[2017-04-20] MEDS: INSULIN ASPART 300 UNIT/3 ML PEN SUBQ SCH ×2 (07:57→11:57)
[2017-04-20 08:02] LABS: BASOPHILS # (AUTO) 0.1 10^3/uL (0.0-0.1); BASOPHILS % (AUTO) 1.1 %; EOSINOPHILS # (AUTO) 0.2 10^3/uL (0.0-0.7); EOSINOPHILS % (AUTO) 2.3 %; HGB - HEMOGLOBIN 9.8 g/dL (12.0-16.0); LYMPHOCYTES # (AUTO) 2.8 10^3/uL (1.5-3.5); LYMPHOCYTES % (AUTO) 26.9 %; MEAN CORPUSCULAR HEMOGLOBIN 28.1 pg (27.0-31.0); MEAN CORPUSCULAR HGB CONC 32.7 g/dL (32.0-36.0); MEAN CORPUSCULAR VOLUME 85.7 fL (81.0-99.0); MEAN PLATELET VOLUME 6.3 fL (7.9-10.8); MONOCYTES # (AUTO) 0.8 10^3/uL (0.0-1.0); MONOCYTES % (AUTO) 7.8 %; NEUTROPHILS # (AUTO) 6.5 10^3/uL (1.5-6.6); NEUTROPHILS % (AUTO) 61.9 %; NUCLEATED RED BLOOD CELLS AUTO 0.1 /100WBC; RED CELL DISTRIBUTION WIDTH 14.9 % (12.0-15.0); UNCORRECTED WHITE BLOOD COUNT 10.5 x10^3/uL; WHITE BLOOD COUNT 10.5 x10^3/uL (4.8-10.8)
[2017-04-20 08:06] LABS: ALBUMIN/GLOBULIN RATIO 0.7 (1.0-2.2); BILIRUBIN,TOTAL 0.3 mg/dL (0.2-1.0); BUN - BLOOD UREA NITROGEN 17 mg/dL (6-20); CALCIUM 9.1 mg/dL (8.5-10.3); CARBON DIOXIDE - CO2 25 mmol/L (21-32); CHLORIDE 103 mmol/L (101-111); CREATININE 0.7 mg/dL (0.4-1.0); GFR - MDRD 81 (>89); GLUCOSE 134 mg/dL (70-100); POTASSIUM 4.3 mmol/L (3.5-5.0); SODIUM 136 mmol/L (135-145); TOTAL PROTEIN 7.1 g/dL (6.7-8.2)
[2017-04-20] MEDS: POLYETHYLENE GLYCOL 3350 17 GM PACKET PO SCH (09:35)
[2017-04-20] MEDS: SULFAMETH/TRIMETH DS 800/160 MG TABLET PO SCH (09:36)
[2017-04-20] MEDS: FAMOTIDINE 20 MG TABLET PO SCH (09:36)
[2017-04-20] MEDS: FERROUS SULFATE 325 MG TABLET PO SCH (09:36)
[2017-04-20] MEDS: CALCIUM CARBONATE CHEW 500 MG TABLET PO SCH (09:36)
[2017-04-20] MEDS: ASPIRIN CHEW 81 MG TABLET PO SCH (09:36)
[2017-04-20] MEDS: ATENOLOL 25 MG TABLET PO SCH (09:37)
[2017-04-20] MEDS: ENOXAPARIN 40 MG/0.4 ML SYRINGE SUBQ SCH (09:38)
[2017-04-20] MEDS: SACCHAROMYCES BOULARDII 250 MG CAPSULE PO SCH (09:38)
[2017-04-20] MEDS: CHOLECALCIFEROL 1,000 UNIT TABLET PO SCH (09:38)
[2017-04-20] MEDS: LISINOPRIL 20 MG TABLET PO SCH (09:38)
[2017-04-20] MEDS: CALCITONIN NASAL SPRAY NAS SCH (09:39)
--- NOTE | 2017-04-20 10:12 | Discharge Plan ---
Discharge Plan Disposition: 01 Home, Self Care Condition: Fair Prescriptions: Sulfamethox/Trimeth 800/160 [Bactrim Ds] 1 tab PO BID #14 tablet Diet: Regular Activity Restrictions: No Restrictions Shower Restrictions: No Weight Bearing: Full Weight No Smoking: If you smoke, Please STOP! Call for help. Follow-up with: Reyes Nelson MD [Primary Care Provider] - 2 Weeks
--- NOTE | 2017-04-20 10:19 | DISCHARGE SUMMARY ---
Discharge Summary Admit Date: 04/18/17 Discharge Date: 04/20/17 Discharging Provider: Cordell York PA-C Primary Care Provider: Reyes Nelson Code Status: Do Not Attempt Resuscitation Condition at Discharge: Fair Discharge Disposition: 01 Home, Self Care - DIAGNOSES Admission Diagnoses: Altered mental status UTI Anemia DM2 HTN Hypothyroid Parkinson disease DVT prophylaxis Discharge Diagnoses with Status of Each Condition: Altered mental status: resolved UTI: On antibiotics. Symptoms improved Anemia: chronic. Stable NIDDM: Stable, controlled Hypertension: controlled Parkinson Disease: chronic. Controlled on home medications DVT prophylaxis: resolved - HPI History of Present Illness: PT was brought to the ED for evaluation of altered mental status. PT was found minimally responsive and brought in for evaluation. CT of head was unremarkable. PT was found to have a UTI in the ED and started on ABX - HOSPITAL COURSE Hospital Course: Pt was admitted to the hospital for IV antibiotics and monitoring. She tolerated her medications. She removed her own IV and antibiotics were changed from IV to PO. SHe refused a new IV placement. Mental status improved and she returned to her baseline prior to discharge. She had no further episodes of decreased responsiveness. She was tested for low iron and found to have Fe of 7. Iron replacement was started during admission. PT refused much of her care the last 24 hours. She did not want to take her medications. She did take the antibiotics. At time of discharge she was doing well without complaints. - ALLERGIES Allergies/Adverse Reactions: Allergies Allergy/AdvReac Type Severity Reaction Status Date / Time ciprofloxacin [From Cipro] Allergy Unknown Verified 04/18/17 10:11 ciprofloxacin HCl * Allergy Unknown Verified 04/18/17 10:11 [From Cipro] hydromorphone HCl * Allergy Unknown Verified 04/18/17 10:11 [From Dilaudid] levofloxacin [From Levaquin] Allergy Unknown Verified 04/18/17 10:11 sertraline HCl * Allergy Unknown Verified 04/18/17 10:11 [From Zoloft] - MEDICATIONS Home Medications: Ambulatory Orders Medication Instructions Recorded Confirmed Aspirin Chewable [St 81 mg PO DAILY 04/18/17 04/18/17 Aspirin] Atenolol 25 mg PO DAILY 04/18/17 04/18/17 Atenolol 50 mg PO DAILY PM 04/18/17 04/18/17 Calcitonin,[place],Synthetic 1 spray NS DAILY 04/18/17 04/18/17 [Miacalcin] Calcium Carbonate [Tums (Calcium 1,000 mg PO DAILY 04/18/17 04/18/17 Carbonate 500mg)] Carbidopa/Levodopa [Carbidopa-Levo 1 each PO TID 04/18/17 04/18/17 ER 50-200 Tab] Carbidopa/Levodopa 0.5 each PO TID 04/18/17 04/18/17 [Carbidopa-Levodopa 25-100 Tab] Cholecalciferol (Vitamin D3) 4,000 unit PO QDAC 04/18/17 04/18/17 [Vitamin D3] Entacapone 100 mg PO QDLUNCH 04/18/17 04/18/17 Entacapone 200 mg PO BID 04/18/17 04/18/17 Glipizide [Glipizide ER] 5 mg PO DAILY 04/18/17 04/18/17 Lactobacillus Acidophilus 1 each PO DAILY 04/18/17 04/18/17 [Acidophilus] Levothyroxine [Synthroid] 175 mcg PO QDAC 04/18/17 04/18/17 Lisinopril 20 mg PO DAILY 04/18/17 04/18/17 Meclizine HCl [Motion Sickness 25 mg PO Q4H PRN 04/18/17 04/18/17 Relief] Propylene Glycol/Peg 400 1 drops OP Q2H 04/18/17 04/18/17 [Lubricant Eye Drops] Ropinirole HCl 1 mg PO TID 04/18/17 04/18/17 raNITIdine [Zantac] 150 mg PO BID 04/18/17 04/18/17 Sulfamethox/Trimeth 800/160 1 tab PO BID #14 tablet 04/20/17 [Bactrim Ds] - PHYSICAL EXAM AT DISCHARGE General Appearance: positive: No acute distress, Alert Eyes Bilateral: positive: PERRL, EOMI ENT: positive: Pharynx nml Neck: positive: No JVD Respiratory: positive: No respiratory distress, Breath sounds nml Cardiovascular: positive: Regular rate & rhythm Peripheral Pulses: positive: 2+ Abdomen: positive: Non-tender, Nml bowel sounds Skin: positive: No rash, Warm, Dry Extremities: positive: Non-tender, Full ROM, No pedal edema Neurologic/Psychiatric: positive: Oriented x3 - LABS Result Diagrams: 04/20/17 07:15 04/20/17 07:15 - DIAGNOSTIC IMAGING Diagnostic Imaging Results: Final report reviewed - TIME SPENT Time Spent in Discharge (Minutes): 30
[2017-04-20 10:36] VITALS: BP 147/70
== END 2017-04-20 12:41 | disposition home or self-care (01) | DRG 690 ==
LOC: ED 09:49 → MS2 14:38
PROVIDERS: ADMIT Nurse Practitioner Gerontology; ATTEND Physician Assistant
DX: R40.1 Stupor (principal); N39.0 Urinary tract infection, site not specified; D64.9 Anemia, unspecified; B96.20 Unspecified Escherichia coli [E. coli] as the cause of diseases classified elsewhere; D50.9 Iron deficiency anemia, unspecified; E11.9 Type 2 diabetes mellitus without complications; I10 Essential (primary) hypertension; G20 Parkinson's disease; E03.9 Hypothyroidism, unspecified; K21.9 Gastro-esophageal reflux disease without esophagitis; Z66 Do not resuscitate; Z85.72 Personal history of non-Hodgkin lymphomas; Z79.82 Long term (current) use of aspirin; Z79.84 Long term (current) use of oral hypoglycemic drugs
CPT/HCPCS: 36415; 70450; 72125; 80053; 80306; 81001; 81003; 82140; 82607; 82728; 83036; 83540; 83615; 83690; 83735; 84443; 84466; 84484; 85025; 85044; 87086; 93005; 99284; 99285

== ENCOUNTER 2017-04-25 01:00 | Outpatient (CLI) | payer MEDICARE, OTHER | END 2017-04-25 01:01 | disposition critical access hospital (66) | LOC: EMS 01:00 | PROVIDERS: ATTEND Surgery | DX: S05.92XA Unspecified injury of left eye and orbit, initial encounter (principal); S69.92XA Unspecified injury of left wrist, hand and finger(s), initial encounter; W18.30XA Fall on same level, unspecified, initial encounter; Y92.099 Unspecified place in other non-institutional residence as the place of occurrence of the external cause | CPT/HCPCS: A0425; A0429 ==

== ENCOUNTER 2017-04-25 01:16 | Emergency (ER) | payer MEDICARE, OTHER ==
[2017-04-25] MEDS ORDERED: TETANUS/DIPHTHERIA/PERTUSSIS 0.5 ML SYRINGE IM ONE ×2 (01:28→01:34)
--- NOTE | 2017-04-25 02:45 | CT Preliminary Report ---
Exam: CT Head W/O IMPRESSION: No acute or focal intracranial abnormality. [facility] SITE ID: [id number]
--- NOTE | 2017-04-25 02:47 | CT Report ---
EXAM: CT HEAD EXAM DATE: 04/25/2017 02:19 AM. CLINICAL HISTORY: Fall with head injury COMPARISON: 04/18/2017. TECHNIQUE: Multiaxial CT images were obtained from the foramen magnum to the vertex. IV contrast: Non e. Reformats: Coronal. In accordance with CT protocol optimization, one or more of the following dose reduction techniques w ere utilized for this exam: automated exposure control, adjustment of mA and/or KV based on patient s ize, or use of iterative reconstructive technique. FINDINGS: Parenchyma: No intraparenchymal hemorrhage. No evidence of mass, midline shift, or CT findings of inf arction. Lopez-white differentiation is distinct. Extraaxial Spaces: Normal for age. No subdural or epidural collections identified. Ventricles: Normal in size and position. Sinuses: Imaged paranasal sinuses, orbits, and mastoids show no significant abnormality. Bones: No evidence of fracture or calvarial defect. Other: No change since the prior study. IMPRESSION: No acute or focal intracranial abnormality. [facility] Referring Provider Line: [phone] SITE ID: [id number]
--- NOTE | 2017-04-25 02:49 | XRAY Preliminary Report ---
Exam: XR Hand 3 View LT IMPRESSION: Oblique mildly comminuted mid left fifth metacarpal fracture with mild palmar angulation and displacement of the distal fracture fragment. [facility] SITE ID: [id number]
--- NOTE | 2017-04-25 02:59 | XRAY Report ---
EXAM: LEFT HAND RADIOGRAPHY EXAM DATE: 04/25/2017 02:21 AM. CLINICAL HISTORY: Fall with left hand injury. COMPARISON: None. TECHNIQUE: 3 views. FINDINGS: Bones: Oblique mildly comminuted mid left fifth metacarpal fracture with mild palmar angulation and d isplacement of the distal fracture fragment. Joints: No dislocation. Severe arthritic changes at the first carpometacarpal joint. Mild diffuse deg enerative changes throughout the hand. Soft Tissues: Swelling. IMPRESSION: Oblique mildly comminuted mid left fifth metacarpal fracture with mild palmar angulation and displacement of the distal fracture fragment. [facility] Referring Provider Line: [phone] SITE ID: [id number]
--- NOTE | 2017-04-25 03:09 | ED Physician Documentation ---
PD HPI Fall - Stated complaint Stated Complaint: HAND/EYE INJURY - Chief complaint Chief Complaint: Trauma Ext - History obtained from History obtained from: Patient, EMS - History of Present Illness Mechanism of injury: Slipped Fall distance: Sitting position Where injury occurred: Home Timing - onset: How many minutes ago (30) Injury(ies) location: Head, Left Hand Quality of pain: Pain, Aching Associated symptoms: No: LOC, AMS Symptoms improve with: Rest, Position Worsens with: Movement, Palpation Contributing factors: No: Anticoagulated, Intoxicated Similar symptoms before: Has not had sx before Recently seen: Not recently seen - Additional information Additional information: Patient is a 81 year old female with a history of parkinson's disease who is presenting to the emergency department after falling. patient was in a wheel chair when she fell forward hitting her head cutting near her eye and her left hand. Patient is on aspirin Review of Systems Constitutional: denies: Fever, Chills Eyes: denies: Decreased vision Ears: denies: Ear pain, Drainage/discharge Nose: denies: Congestion, Epistaxis Throat: denies: Dental pain / toothache Cardiac: denies: Chest pain / pressure Respiratory: denies: Cough GI: denies: Nausea, Vomiting Skin: reports: Abrasion (s), Laceration (s) Musculoskeletal: reports: Extremity pain, Extremity swelling Neurologic: reports: Other (parkinsonian tremor). denies: Generalized weakness , Focal weakness, Numbness PD PAST MEDICAL HISTORY - Past Medical History Past Medical History: Yes Cardiovascular: Hypertension Neuro: Parkinson's Endocrine/Autoimmune: Type 2 diabetes, HyPOthyroidism GI: GERD Musculoskeletal: Osteoarthritis - Past Surgical History Past Surgical History: Yes - Present Medications Home Medications: Ambulatory Orders Medication Instructions Recorded Confirmed Aspirin Chewable [St 81 mg PO DAILY 04/18/17 04/18/17 Aspirin] Atenolol 25 mg PO DAILY 04/18/17 04/18/17 Atenolol 50 mg PO DAILY PM 04/18/17 04/18/17 Calcitonin,[place],Synthetic 1 spray NS DAILY 04/18/17 04/18/17 [Miacalcin] Calcium Carbonate [Tums (Calcium 1,000 mg PO DAILY 04/18/17 04/18/17 Carbonate 500mg)] Carbidopa/Levodopa [Carbidopa-Levo 1 each PO TID 04/18/17 04/18/17 ER 50-200 Tab] Carbidopa/Levodopa 0.5 each PO TID 04/18/17 04/18/17 [Carbidopa-Levodopa 25-100 Tab] Cholecalciferol (Vitamin D3) 4,000 unit PO QDAC 04/18/17 04/18/17 [Vitamin D3] Entacapone 100 mg PO QDLUNCH 04/18/17 04/18/17 Entacapone 200 mg PO BID 04/18/17 04/18/17 Glipizide [Glipizide ER] 5 mg PO DAILY 04/18/17 04/18/17 Lactobacillus Acidophilus 1 each PO DAILY 04/18/17 04/18/17 [Acidophilus] Levothyroxine [Synthroid] 175 mcg PO QDAC 04/18/17 04/18/17 Lisinopril 20 mg PO DAILY 04/18/17 04/18/17 Meclizine HCl [Motion Sickness 25 mg PO Q4H PRN 04/18/17 04/18/17 Relief] Propylene Glycol/Peg 400 1 drops OP Q2H 04/18/17 04/18/17 [Lubricant Eye Drops] Ropinirole HCl 1 mg PO TID 04/18/17 04/18/17 raNITIdine [Zantac] 150 mg PO BID 04/18/17 04/18/17 Sulfamethox/Trimeth 800/160 1 tab PO BID #14 tablet 04/20/17 [Bactrim Ds] - Allergies Allergies/Adverse Reactions: Allergies Allergy/AdvReac Type Severity Reaction Status Date / Time ciprofloxacin [From Cipro] Allergy Unknown Verified 04/25/17 01:47 ciprofloxacin HCl * Allergy Unknown Verified 04/25/17 01:47 [From Cipro] hydromorphone HCl * Allergy Unknown Verified 04/25/17 01:47 [From Dilaudid] levofloxacin [From Levaquin] Allergy Unknown Verified 04/25/17 01:47 sertraline HCl * Allergy Unknown Verified 04/25/17 01:47 [From Zoloft] - Social History Does the pt smoke?: No Smoking Status: Former smoker Does the pt drink ETOH?: No Does the pt have substance abuse?: No - Immunizations Immunizations are current?: Yes - POLST Patient has POLST: Yes PD ED PE NORMAL - Vitals Vital signs reviewed: Yes - General General: Alert and oriented X 3, No acute distress - HEENT HEENT: PERRL, Moist mucous membranes, Dentition benign - Neck Neck: No bony TTP - Cardiac Cardiac: RRR, No murmur - Respiratory Respiratory: No respiratory distress, Clear bilaterally - Abdomen Abdomen: Soft, Non tender, Non distended - Derm Derm: Other (various ecchymosis) - Neuro Neuro: Alert and oriented X 3, Normal speech - Psych Psych: Normal mood, Normal affect PD ED PE EXPANDED - HEENT HEENT: Head injury (0.7mm laceration near left eye) - Extremities Extremities: Left hand (tenderness and swelling of left hand over 4th and 5th metatarsals) - Neuro Neuro: Other (resting tremor) Results - Vitals Vitals: Vital Signs - 24 hr 04/25/17 04/25/17 04/25/17 01:25 03:15 06:52 Temperature 36.3 C L Heart Rate 70 71 63 Respiratory 20 16 18 Rate Blood Pressure 164/92 H 129/79 131/71 H O2 Saturation 100 99 100 Oxygen O2 Source Room air - Rads (name of study) ct head Radiology: Final report received (no acute intracranial pathology) right hand x-ray Radiology: Final report received (fracture of fifth metacarpal) Procedures - Laceration (location) left superior lateral orbital region Length in cm: 0.7 Wound type: Linear Neurovascular status: Sensory intact Wound Preparation: Chlorhexadine Skin layer closure: Steri strips Other: Patient tolerated well, Tetanus booster given Complexity: Simple - Splint (location) left hand Splint applied by: Tech Type of splint: Ulnar gutter Other: Patient tolerated well, No complications, Neurovascular intact, Good alignment PD MEDICAL DECISION MAKING - ED course Complexity details: reviewed old records, reviewed results, re-evaluated patient , considered differential, d/w patient ED course: Patient was seen and examined at bedside. patient was sent for imaging. when patient returned her laceration was repaired. imaging results were reviewed. Patient had a fracture of her left hand. patient was placed in an ulnar gutter. Patient required no further work up and was stable for discharge with outpatient follow up. Departure - Departure Disposition: 01 Home, Self Care Clinical Impression: Fracture of fifth metacarpal bone of left hand Condition: Good Instructions: ED Fx Hand Closed Follow-Up: Reji Sanders MD [Provider Admit Priv/Credential] - Tomorrow Comments: Your symptoms today are being caused by a fracture of a bone in your hand. You will be placed in a splint today. You should continue to ice your hand and keep it elevated. You will need to follow up with Dr. Sanders the orthopedic doctor for further care. For the laceration around your eye, the steristrips will eventually fall off. Make sure you keep the area clean and dry. You may return to the emergency department at any time for new, worsening or uncontrollable symptoms.
[2017-04-25 08:36] VITALS: BP 150/74
== END 2017-04-25 08:52 | disposition home or self-care (01) ==
LOC: EDUNIT# → ED 01:16
DX: S62.307A Unspecified fracture of fifth metacarpal bone, left hand, initial encounter for closed fracture (principal); S05.32XA Ocular laceration without prolapse or loss of intraocular tissue, left eye, initial encounter; W05.0XXA Fall from non-moving wheelchair, initial encounter; Y92.009 Unspecified place in unspecified non-institutional (private) residence as the place of occurrence of the external cause; Z23 Encounter for immunization; G20 Parkinson's disease; I10 Essential (primary) hypertension; E11.9 Type 2 diabetes mellitus without complications; Z79.82 Long term (current) use of aspirin; Z87.891 Personal history of nicotine dependence
CPT/HCPCS: 12001; 29125; 70450; 90471; 99283; 99284

== ENCOUNTER 2017-05-21 15:00 | Outpatient (CLI) | payer MEDICARE, OTHER ==
--- NOTE | 2017-05-21 20:31 | CONSULTATION NOTE ---
Palliative Care Consultation - Referral Referring Provider: Dr. Reyes Nelson ([facility]) Time of Visit: 15:00 Referral setting: Assisted living (Seen in home setting, which is [facility], due to taxing and considerable effort required to leave the home due to limited mobility and functionality secondary to advanced Parkinson' s.) - Information Sources Records reviewed: Previous records reviewed History/Review of Systems obtained from: Patient, Family Exam limitations: Clinical condition (Speech often barely audible and unintelligible.) - History of Present Illness Brief History of Present Illness: The patient is an 82-year-old female with a long history of progressive Parkinson's as well as hypertension, DM type II, hypothyroidism, and recurrent UTIs. She also has a distant history of non-Hodgkin's lymphoma including chemotherapy between 1985 and 1990. She first fell about 3 years ago, and underwent hospitalization and rehabilitation at [facility]. After that she didn't fall again for about a year, and since then has had increasingly frequent falls. In December 2016 she fell and was hospitalized for a UTI. She fell again on 04/17/17 and was hospitalized 04/18/17 for another UTI and evaluated for head injury. A CT of head was unremarkable, but a C-spinal at C4- 5 revealed severe left and moderate right foraminal stenosis. On 04/25/17 she fell again, and was taken to the ER, where another CT of head showed no hemorrhage, no evidence of mass, midline shift, or CT findings of infarction. However, a left hand radiography revealed a comminuted fracture of the mid-left fifth metacarpal. After this most recent hospitalization and rehabilitation, she and her moved to [facility] assisted living facility about 3 weeks ago because of her steadily declining functionality and strength. She now requires caregiver help with ADLs more days than not, and her family has noticed increased periods of freezing, which is associated with mid to advanced Parkinson's. She is currently participating in OT and PT. She also has achalasia (muscles of lower esophagus fail to relax, preventing food from passing into the stomach), and has difficulty swallowing her medications. She enjoys the food they serve in the dining room and finds having meals served is a great benefit of living here. Information obtained from patient, family, and EMR chart notes from PCP and hospital. 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 (Daughter, Yazmin Ram, lives in the area.) Medications/Allergies - Medications Home Medications: Ambulatory Orders Medication Instructions Recorded Confirmed Aspirin Chewable [St 81 mg PO DAILY 04/18/17 05/21/17 Aspirin] Atenolol 25 mg PO DAILY 04/18/17 05/21/17 Atenolol 50 mg PO DAILY PM 04/18/17 05/21/17 Calcitonin,[place],Synthetic 1 spray NS DAILY 04/18/17 05/21/17 [Miacalcin] Calcium Carbonate [Tums (Calcium 1,000 mg PO DAILY 04/18/17 05/21/17 Carbonate 500mg)] Carbidopa/Levodopa [Carbidopa-Levo 1 each PO TID 04/18/17 05/21/17 ER 50-200 Tab] Carbidopa/Levodopa 0.5 each PO TID 04/18/17 05/21/17 [Carbidopa-Levodopa 25-100 Tab] Cholecalciferol (Vitamin D3) 4,000 unit PO QDAC 04/18/17 05/21/17 [Vitamin D3] Glipizide [Glipizide ER] 5 mg PO DAILY 04/18/17 05/21/17 Levothyroxine [Synthroid] 175 mcg PO QDAC 04/18/17 05/21/17 Lisinopril 20 mg PO DAILY 04/18/17 05/21/17 Meclizine HCl [Motion Sickness 25 mg PO Q4H PRN 04/18/17 05/21/17 Relief] Propylene Glycol/Peg 400 1 drops OP Q2H 04/18/17 05/21/17 [Lubricant Eye Drops] Ropinirole HCl 1 mg PO TID 04/18/17 05/21/17 Lactobacillus Acidophilus 1 ea PO DAILY 05/21/17 05/21/17 [Acidophilus] Nitrofurantoin [Macrobid] 100 mg PO BID 05/21/17 05/21/17 Ranitidine HCl [Zantac] 6 ml PO BID 05/21/17 05/21/17 Tylenol Extra Strength Liquid 31.25 ml PO Q4H PRN 05/21/17 05/21/17 160mg/5ml - Allergies Allergies/Adverse Reactions: Allergies Allergy/AdvReac Type Severity Reaction Status Date / Time ciprofloxacin [From Cipro] Allergy Unknown Verified 04/25/17 01:47 ciprofloxacin HCl * Allergy Unknown Verified 04/25/17 01:47 [From Cipro] hydromorphone HCl * Allergy Unknown Verified 04/25/17 01:47 [From Dilaudid] levofloxacin [From Levaquin] Allergy Unknown Verified 04/25/17 01:47 sertraline HCl * Allergy Unknown Verified 04/25/17 01:47 [From Zoloft] Review of Systems - Constitutional Constitutional: reports: Fatigue, Weakness, Other (Weight is 141 lbs on 05/19/17. ) - Cardiovascular Cardiovascular: denies: Chest pain - Respiratory Respiratory: denies: SOB at rest, SOB with exertion - Gastrointestinal Gastrointestinal: denies: Constipation, Diarrhea, Poor appetite - Genitourinary Genitourinary: denies: Dysuria, Frequency - Musculoskeletal Musculoskeletal: reports: Back pain (had a chiropractic appointment today) - Neurological Neurological: reports: General weakness, Abnormal gait, Seizures (Parkinsonian "freezing") - Endocrine Endocrine: reports: Diabetes type 2, Hypothyroidism - Hematologic/Lymphatic Hematologic/Lymphatic: reports: Other (History of non-Hodgkins lymphoma and chemotherapy, [id number].) Physical Exam - Vital Signs Temperature: 97.2 F Pulse Rate: 80 O2 Saturation: 99 Blood Pressure: 138/75 - Physical Exam General Appearance: positive: No acute distress, Lethargic Eyes Bilateral: positive: EOMI, No lid inflammation, Conjunctivae nml, No scleral icterus ENT: positive: No signs of dehydration Neck: positive: Nml inspection, Thyroid nml, No JVD, Trachea midline Cardiovascular: positive: Regular rate & rhythm, No gallop. negative: Tachycardia Respiratory: positive: Chest non-tender, No respiratory distress Skin: positive: No symptoms Extremities: positive: Nml appearance Neurologic/Psychiatric: positive: Oriented x3, Weakness, Unintelligible speech ( difficult to hear and understand), Flat affect Palliative Care - POLST Patient has POLST: Yes POLST Status: DNR, Comfort Measures Pain: No pain, Comment (Chronic back pain, but just had a chiropractic session today) Tiredness/Fatigue: Moderate (4-6) Drowsiness/Sedation: None Nausea: None Depression: None Anxiety: Mild (1-3) (related to leaving her home of 50+ years and relocating to assisted living) Dyspnea: None Anorexia: None Constipation: No Feelings of wellbeing/Perceived Quality of Life: Acceptable Performance Status: Current level of functioning: Declining strength, requires aid with ADLs more often than not, increasing falls, repeat hospitalizations and UTIs. She is currently participating in PT and OT. Palliative Care Performance Status: 60% - Palliative Care Discussion: Who is present: Patient, patient's spouse Art, daughter Yazmin Ram, myself Surrogate decision maker: Yazmin Ram genevieve [phone]. Son Franco Ram ([place]) mobile [phone]. Most important goals: Daughter reports that her mother is terrified of ending up in a facility and most of all wants to stay at home, and eventually at home. She has just had to leave her home of 50+ years in [place] to move into this assisted living facility, and is still emotionally and physically settling in at [facility]. Her father had undergone a surgery, during which he had a stroke and was subsequently resuscitated on the operating table but went into a coma for several months. Once he came out of the coma he was quite disabled and was never the same. This was highly traumatic for the patient and for all of the family, and so she has very strong emotions and opinions on not having CPR performed on her. Her goal is comfort and she wants to avoid hospitalization as much as possible, and to look at it as a case by case basis. Her daughter is quite open to the prospect of her mother eventually transitioning into hospice, and she says her mother equates hospice with being in a [place] [facility] [place], and she wants her to understand that she can be under Hospice care while remaining at her own home. It has been a very traumatic experience for the patient to leave the home where she raised her children, but the daughter says she is making the best of it and looking as positively as she can at this move. The patient has been resilient in first fighting 4 recurrences of lymphoma many years ago, and now Parkinson's, possibly a result of the chemotherapy treatments she had over 5 /12 years. The patient has a positive attitude toward her challenging health history, stating that "you've got to fight for your life." The daughter has been taking a considerable amount of time in caring for her mother and stepfather and helping them manage their affairs, even to the point of falling sick. She is now getting them settled in at [facility]. Patient/family concerns: Family would like as many medications as possible in liquid form due to the patient's achalasia. Impression and Recommendations - Palliative Care Impression: This is an 82-year-old woman with advanced Parkinson's disease. She has frequent UTIs with increasing falls and hospitalizations, and is declining in strength and functionality as her Parkinson's advances. Her main goals are to remain comfortable at home as long as possible, avoid hospitalizations, and eventually transition to hospice when appropriate. Recommendations/Counseling Done: 1. Parkinson's: Medications are managed by her neurologist. Her history has been brittle with respect to adjusting her medications, trying to strike the balance between too much sedation and confusion and inadequate control of the Parkinson symptoms. She takes Sinemet and ropinerole. Entacapone had been DC'd . Currently participating in PT. 2. UTIs: History of recurrent infections. Continue on nitrofurantoin 100mg BID for urinary health. 3. Achalasia: Lower esophagus muscles prevent food from passing into the stomach. Family crushes most medications. I switched two medications -- Tylenol and Ranitidine -- to liquid form. They were the only two of her meds that came as liquid. They crush the rest of her medications. 4. Comminuted fracture of left fifth metacarpal: Wears a wrist brace and participates in OT. Has Tylenol for pain, but is currently without complaint of pain. 5. Advanced Planning: Filled out and signed POLST, DNR with comfort measures. Patient's great fear is ending up in a facility. When we meet again in two weeks , reassure her about the ability to remain in her own home when the time is appropriate to transition to Hospice. Time Spent: 75 minutes with greater than 50% of this done in counseling and coordination of care regarding advanced care planning and symptom burden, weighing benefits and burdens of different treatment options.
== END 2017-05-21 15:01 | disposition home or self-care (01) ==
LOC: PC 15:00
PROVIDERS: ATTEND Nurse Practitioner
DX: Z51.5 Encounter for palliative care (principal); G20 Parkinson's disease; K22.0 Achalasia of cardia; I10 Essential (primary) hypertension; E03.9 Hypothyroidism, unspecified; E11.9 Type 2 diabetes mellitus without complications; S62.627D Displaced fracture of middle phalanx of left little finger, subsequent encounter for fracture with routine healing; Z66 Do not resuscitate; Z87.440 Personal history of urinary (tract) infections; Z91.81 History of falling; Z85.72 Personal history of non-Hodgkin lymphomas; Z79.899 Other long term (current) drug therapy

== ENCOUNTER 2017-06-11 13:00 | Outpatient (CLI) | payer MEDICARE, OTHER ==
--- NOTE | 2017-06-11 19:56 | CONSULTATION NOTE ---
Palliative Care Follow Up - Referral Referring Provider: Dr Reyes Lundy Time of Visit: 13:00 Referral setting: Assisted living (Seen in home setting, which is [facility] facility, due to taxing and considerable effort required to leave the facility due to very limited mobility and declining functionality secondary to advanced Parkinson's disease.) - Information Sources Records reviewed: RN notes reviewed, Previous records reviewed History/Review of Systems obtained from: Patient, Family, Nursing Exam limitations: Clinical condition (patient drowsiness) - History of Present Illness Update Brief HPI Update: [id number] for manual wheelchair and AP mattress and Home Health nursing for wound care This is an 82-year-old woman with a long history of progressive Parkinson's as well as hypertension, DM type II, hypothyroidism, and recurrent UTIs and increasingly frequent falls. She also has a distant history of non-Hodgkin's lymphoma including chemotherapy between 1985 and 1990. Due to increasing lower extremity weakness (causing increasing falls) as a result of advanced Parkinson's disease, patient is non-ambulatory inside the home, and is completely non-ambulatory outside of the home. As a result of non- ambulatory status, patient is therefore unable to accomplish all mobility- related aids to daily living activities, such as, toileting, going to the [facility] dining room for feeding, bathing and grooming without the assistance of a wheelchair due to lower extremity weakness. Due to the effects of lower extremity weakness, patient is incapable of using a cane or walker inside the home for more than a few steps as doing so would not allow the patient to accomplish MRADLs in a reasonable timeframe. Patient will be reliant upon a wheelchair to accomplish all mobility-related aids to daily living in the home such as toileting, feeding, bathing, and grooming. Patient has not expressed an unwillingness to use the wheelchair. Patient does not have sufficient upper extremity function to safely propel a wheelchair but has caregiver assistance who is able to assist with the wheelchair propulsion. The use of a wheelchair will significantly improve patients ability to successfully participate in her MRADLs (grooming, bathing, feeding and toileting ) and as a result, patients functional mobility deficits will be resolved. The patient also requires a contour foam cushion for seat, with rigidizer, and a back cushion. Due to Ulcer Stage 2 on patient's trunk (coccyx) as a result of lower extremity weakness and immobility secondary to Parkinson's disease, patient requires an AP mattress to promote wound healing. As a result of diabetes mellitus II patient also suffers from compromised circulatory status which can decrease skin integrity if not managed. An AP mattress support will promote healthy skin integrity. Today both she and her partner Elan are not feeling well, with chesty, productive cough, and fatigue. They started coming down with something around , when we originally had an appointment. She asked to reschedule that visit due to not feeling well, and she had an appointment with her PCP. Today she reports feeling worse. She did not sleep well last night due to being kept awake by her partner's coughing. She denies headache, congestion, SOB, fever, n /v, diarrhea, constipation. She reports a productive cough, worse at night, with chills and aches. She has not been taking any medications for relief of symptoms. Today she completed a 10-day cycle of Augmentin antibiotic, for UTI prophylactic. Ciprofloxacin had been stopped due to allergies. She also reports an ongoing, open coccyx wound approximately 1 cm x 1 cm located in the intergluteal cleft. Nursing at the facility have been applying barrier cream to the area. Social History - Living Situation Living arrangement: Assisted living ([facility]) Living Situation: With spouse/s.o. Support System: Daughter, Yazmin Ram, lives in [place], off of [facility], and patient's son, Franco, lives in [place]. Patient's partner's son works in the facility and also lives nearby. Medications/Allergies - Medications Home Medications: Ambulatory Orders Medication Instructions Recorded Confirmed Aspirin Chewable [St 81 mg PO DAILY 04/18/17 06/11/17 Aspirin] Atenolol 25 mg PO DAILY 04/18/17 06/11/17 Atenolol 50 mg PO DAILY PM 04/18/17 06/11/17 Calcitonin,[place],Synthetic 1 spray NS DAILY 04/18/17 06/11/17 [Miacalcin] Calcium Carbonate [Tums (Calcium 1,000 mg PO DAILY 04/18/17 06/11/17 Carbonate 500mg)] Carbidopa/Levodopa [Carbidopa-Levo 1 each PO TID 04/18/17 06/11/17 ER 50-200 Tab] Carbidopa/Levodopa 0.5 each PO TID 04/18/17 06/11/17 [Carbidopa-Levodopa 25-100 Tab] Cholecalciferol (Vitamin D3) 4,000 unit PO QDAC 04/18/17 06/11/17 [Vitamin D3] Glipizide [Glipizide ER] 5 mg PO DAILY 04/18/17 06/11/17 Levothyroxine [Synthroid] 175 mcg PO QDAC 04/18/17 06/11/17 Lisinopril 20 mg PO DAILY 04/18/17 06/11/17 Meclizine HCl [Motion Sickness 25 mg PO Q4H PRN 04/18/17 06/11/17 Relief] Propylene Glycol/Peg 400 1 drops OP Q2H MDD during waking 04/18/17 06/11/17 [Lubricant Eye Drops] hours only Ropinirole HCl 1 mg PO TID 04/18/17 06/11/17 Ranitidine HCl [Zantac] 10 ml PO BID 05/21/17 06/11/17 Tylenol Extra Strength Liquid 31.25 ml PO Q4H PRN 05/21/17 06/11/17 160mg/5ml Digestive Advantage Gummie Tablet 2 unit PO DAILY 06/11/17 Probiotic - Allergies Allergies/Adverse Reactions: Allergies Allergy/AdvReac Type Severity Reaction Status Date / Time ciprofloxacin [From Cipro] Allergy Unknown Verified 04/25/17 01:47 ciprofloxacin HCl * Allergy Unknown Verified 04/25/17 01:47 [From Cipro] hydromorphone HCl * Allergy Unknown Verified 04/25/17 01:47 [From Dilaudid] levofloxacin [From Levaquin] Allergy Unknown Verified 04/25/17 01:47 sertraline HCl * Allergy Unknown Verified 04/25/17 01:47 [From Zoloft] Review of Systems - Constitutional Constitutional: reports: Fatigue, Chills, Weakness. denies: Fever - Ears, Nose & Throat Ears, Nose & Throat: reports: Hearing loss - Cardiovascular Cardiovascular: denies: Irregular heart rate, Chest pain, Lightheadedness - Respiratory Respiratory: reports: Cough, Sputum production. denies: Wheezing, SOB at rest - Gastrointestinal Gastrointestinal: reports: Poor appetite. denies: Constipation, Diarrhea, Nausea, Vomiting - Genitourinary Genitourinary: denies: Dysuria, Frequency, Urgency - Musculoskeletal Musculoskeletal: reports: Muscle aches - Neurological Neurological: reports: Abnormal gait. denies: Headache - Endocrine Endocrine: reports: Diabetes type 2, Hypothyroidism Physical Exam - Vital Signs Temperature: 98.4 F Pulse Rate: 83 O2 Saturation: 98 Blood Pressure: 170/90 - Physical Exam General Appearance: positive: No acute distress, Lethargic Eyes Bilateral: positive: Normal inspection, EOMI, No lid inflammation, Conjunctivae nml, No scleral icterus ENT: positive: Dry mucous membranes (cobblestone tongue) Neck: positive: Thyroid nml, No JVD, Trachea midline Cardiovascular: positive: Regular rate & rhythm, No gallop Respiratory: positive: Chest non-tender, No respiratory distress, Breath sounds nml. negative: Wheezes, Rales, Rhonchi Skin: positive: Pallor Extremities: positive: Pedal edema (mild) Neurologic/Psychiatric: positive: Oriented x3, Motor nml, Sensation nml, Flat affect Palliative Care - POLST Patient has POLST: Yes POLST Status: DNR, Comfort Measures Pain: No pain Tiredness/Fatigue: Moderate (4-6) (due to illness, lack of sleep last night) Drowsiness/Sedation: Moderate (4-6) Nausea: None Depression: None Anxiety: None Dyspnea: None Anorexia: Mild (1-3) Sleep: Sleeps poorly Constipation: No Feelings of wellbeing/Perceived Quality of Life: Poor (due to illness) Performance Status: Current level of functioning: Increasing lower extremity weakness and general decline, unable to ambulate with walker more than a few feet, and in mornings is unable to ambulate. Palliative Care performance Status: 50% - Palliative Care Discussion: Who is present: Patient, her partner Art, myself. Surrogate decision maker: Yazmin Ram, daughter, mobile [phone]. [place]. Franco Ram, son, mobile [phone]. [place]. Most important goals: Comfort and not ending up in a facility. Her father was resuscitated during surgery, becoming disabled after a stroke and he was never the same, which was very traumatic for the family, and she has very strong feelings around CPR. Daughter is supportive of hospice, and she has reported that the patient equates hospice with a prison. The patient never wants to be in a prison and hopes to remain at home. We will need further discussion around this; today, due to the patient's illness and drowsiness, we were unable to talk about advanced planning. We filled out the POLST, after an error was discovered on the previous version. It is now correct and hanging on the patient's refrigerator. I had a long conversation with the daughter, and there are complex family dynamics and stressors involved with her mother's leaving her house and moving to [facility]. The daughter realizes her mother is declining functionally, and says that the patient has a sense her time "is limited." The patient has said to her daughter, "I don't think I'll live long after 80" (she is 82 now). The daughter states she is ok with her mother passing away, but she "hates her being in pain." She notes that the Parkinson's has amplified everything, and that her mother doesn't have friends at [facility]. Back home, she at least had a picture window she would look out of, and people would wave to her as they passed her house. The patient still has her house in [place] and the daughter is taking care of issues around the mother's house and finances. The daughter lives far away ([place], some 90 miles), so she is under significant amounts of stress with these responsibilities and the distance to her mother's house, and also visiting her mother on [facility]. She does have the moral support of her brother, although he is in [place] The patient told me today that she does like this facility. The daughter had previously mentioned she (the patient) did not feel safe, that she had $65 missing, and a credit cared (but it was found), and she is now getting a work order done to create a locked motorcycle engine assembler the unit. Impression and Recommendations - Palliative Care Impression: This is an 82 year old woman with advanced Parkinson disease and increasing weakness, falls, infections, and declining strength and functionality. She would benefit from a manual wheelchair in light of her diminishing mobility and increased risk for falls. She is weak and fatigued today with a persistent respiratory illness, as is her partner, and has just completed a 10-day regimen of antibiotics (Augmentin) for her most recent UTI. Recommendations/Counseling Done: Parkinson's disease: Declining functionality and mobility. Medications have been managed by her neurologist, possibly that is transferring to her new PCP, Dr Lundy. She is on sinemet and ropinerole. Continue PT. Recommend manual wheelchair with contour foam cushion for seat with rigidizer, and also a back cushion. Recurrent UTIs: Just completed 10-day course of Augmentin. Monitor. Lower respiratory infection: Ordered cxr (AP and lateral) to rule out pneumonia. Ordered CBC with differential. Note that an antibiotic course of Augmentin x 10 days just completed today. Coccyx wound: Referred to Home Health for wound care. Recommend AP mattress. See HPI. Advance care planning: Corrected and updated POLST (DNR, comfort measures), signed, and in place in patient's unit on the refrigerator door. Follow up tomorrow for lab and cxr results. Requested results to be faxed to PCP. Sent PCP Nikkie a palliative care referral form to sign and return. Time Spent: 60 minutes with greater than 50% of this spent in evaluation, counselling, coordination of care, and weighing benefits and burdens of interventions regarding respiratory infection and coccyx wound.
== END 2017-06-11 13:01 | disposition home or self-care (01) ==
LOC: PC 13:00
PROVIDERS: ATTEND Nurse Practitioner
DX: Z51.5 Encounter for palliative care (principal); N39.0 Urinary tract infection, site not specified; J22 Unspecified acute lower respiratory infection; I10 Essential (primary) hypertension; E11.9 Type 2 diabetes mellitus without complications; E03.9 Hypothyroidism, unspecified; L89.152 Pressure ulcer of sacral region, stage 2; Z79.82 Long term (current) use of aspirin; R53.83 Other fatigue; R53.1 Weakness; R05 Cough; R68.83 Chills (without fever); M79.1 Myalgia; R26.9 Unspecified abnormalities of gait and mobility; Z91.81 History of falling; Z66 Do not resuscitate

== ENCOUNTER 2017-07-03 14:29 | Outpatient (CLI) | payer MEDICARE, OTHER | END 2017-07-03 14:30 | disposition critical access hospital (66) | LOC: EMS 14:29 | PROVIDERS: ATTEND Surgery | DX: R51 Headache (principal); W18.30XA Fall on same level, unspecified, initial encounter; Y92.199 Unspecified place in other specified residential institution as the place of occurrence of the external cause | CPT/HCPCS: A0425; A0429 ==

== ENCOUNTER 2017-07-03 14:45 | Observation (INO) | payer MEDICARE, OTHER ==
[2017-07-03 15:36] LABS: CREATININE 0.8 mg/dL (0.4-1.0); POTASSIUM 3.8 mmol/L (3.5-5.0)
[2017-07-03 15:37] LABS: BASOPHILS # (AUTO) 0.1 10^3/uL (0.0-0.1); BASOPHILS % (AUTO) 0.9 %; EOSINOPHILS # (AUTO) 0.4 10^3/uL (0.0-0.7); EOSINOPHILS % (AUTO) 3.8 %; HCT - HEMATOCRIT 28.4 % (37.0-47.0); HGB - HEMOGLOBIN 9.4 g/dL (12.0-16.0); LYMPHOCYTES # (AUTO) 2.3 10^3/uL (1.5-3.5); LYMPHOCYTES % (AUTO) 21.7 %; MEAN CORPUSCULAR HEMOGLOBIN 27.7 pg (27.0-31.0); MONOCYTES # (AUTO) 0.6 10^3/uL (0.0-1.0); MONOCYTES % (AUTO) 6.1 %; NEUTROPHILS # (AUTO) 7.1 10^3/uL (1.5-6.6); NEUTROPHILS % (AUTO) 67.5 %; RED BLOOD COUNT 3.38 10^6/uL (4.20-5.40); RED CELL DISTRIBUTION WIDTH 17.4 % (12.0-15.0); UNCORRECTED WHITE BLOOD COUNT 10.6 x10^3/uL; WHITE BLOOD COUNT 10.6 x10^3/uL (4.8-10.8)
[2017-07-03] MEDS ORDERED: ACETAMINOPHEN 325 MG TABLET PO STA (16:22)
[2017-07-03] MEDS ORDERED: ACETAMINOPHEN 325 MG TABLET PO ONE (16:35)
--- NOTE | 2017-07-03 16:49 | ED Physician Documentation ---
History of Present Illness - Stated complaint Stated Complaint: GLF - Chief complaint Chief Complaint: General - Additonal information Additional information: hx from pt 82 female fell three times today head hurts abrasion to shoulder complained of neck pain earlier she isnt sure why she fell, thinks she stumbled but that is unusual for her, no syncope, denies fever cough CP AP soa NVD urinary sx no blood thinners Review of Systems Constitutional: denies: Fever, Chills Cardiac: denies: Chest pain / pressure, Palpitations Respiratory: denies: Dyspnea, Cough GI: denies: Abdominal Pain, Nausea, Vomiting Musculoskeletal: reports: Neck pain, Joint pain Neurologic: reports: Headache, Head injury Endocrine: denies: Easy bruising / bleeding Immunocompromised: denies: Immunocompromised PD PAST MEDICAL HISTORY - Past Medical History Past Medical History: Yes Cardiovascular: Hypertension Neuro: Parkinson's Endocrine/Autoimmune: Type 2 diabetes, HyPOthyroidism GI: GERD Musculoskeletal: Osteoarthritis - Past Surgical History Past Surgical History: Yes General: Other HEENT: Tonsil/Adenoidectomy - Present Medications Home Medications: Ambulatory Orders Medication Instructions Recorded Confirmed Aspirin Chewable [St 81 mg PO DAILY 04/18/17 07/03/17 Aspirin] Atenolol 25 mg PO DAILY 04/18/17 07/03/17 Atenolol 50 mg PO DAILY PM 04/18/17 07/03/17 Calcitonin,[place],Synthetic 1 spray NS DAILY 04/18/17 07/03/17 [Miacalcin] Calcium Carbonate [Tums (Calcium 1,000 mg PO DAILY 04/18/17 07/03/17 Carbonate 500mg)] Carbidopa/Levodopa [Carbidopa-Levo 1 each PO TID 04/18/17 07/03/17 ER 50-200 Tab] Carbidopa/Levodopa 0.5 each PO TID 04/18/17 07/03/17 [Carbidopa-Levodopa 25-100 Tab] Cholecalciferol (Vitamin D3) 4,000 unit PO QDAC 04/18/17 07/03/17 [Vitamin D3] Glipizide [Glipizide ER] 5 mg PO DAILY 04/18/17 07/03/17 Levothyroxine [Synthroid] 175 mcg PO QDAC 04/18/17 07/03/17 Lisinopril 20 mg PO DAILY 04/18/17 07/03/17 Meclizine HCl [Motion Sickness 25 mg PO Q4H PRN 04/18/17 07/03/17 Relief] Propylene Glycol/Peg 400 1 drops OP Q2H MDD during waking 04/18/17 07/03/17 [Lubricant Eye Drops] hours only Ropinirole HCl 1 mg PO TID 04/18/17 07/03/17 Ranitidine HCl [Zantac] 10 ml PO BID 05/21/17 07/03/17 Tylenol Extra Strength Liquid 31.25 ml PO Q4H PRN 05/21/17 07/03/17 160mg/5ml Digestive Advantage Gummie Tablet 2 unit PO DAILY 06/11/17 07/03/17 Probiotic Nitrofurantoin Monohyd/M-Cryst 07/03/17 [Macrobid 100 mg Capsule] - Allergies Allergies/Adverse Reactions: Allergies Allergy/AdvReac Type Severity Reaction Status Date / Time ciprofloxacin [From Cipro] Allergy Unknown Verified 04/25/17 01:47 ciprofloxacin HCl * Allergy Unknown Verified 04/25/17 01:47 [From Cipro] hydromorphone HCl * Allergy Unknown Verified 04/25/17 01:47 [From Dilaudid] levofloxacin [From Levaquin] Allergy Unknown Verified 04/25/17 01:47 sertraline HCl * Allergy Unknown Verified 04/25/17 01:47 [From Zoloft] - Social History Does the pt smoke?: No Smoking Status: Never smoker Does the pt drink ETOH?: No Does the pt have substance abuse?: No - Immunizations Immunizations are current?: Yes - POLST Patient has POLST: Yes PD ED PE NORMAL - Vitals Vital signs reviewed: Yes - General General: Other (alert cooperartive confused does not remember why she fell) - HEENT HEENT: Atraumatic - Neck Neck: No bony TTP - Cardiac Cardiac: RRR - Respiratory Respiratory: No respiratory distress, Clear bilaterally - Abdomen Abdomen: Soft, Non tender - Derm Derm: Warm and dry (abrasion to right shoulder) - Extremities Extremities: Other (abrasion R shoulder no deformity able to range, MSV intact, hip NT and full ROM not short or rotated) - Neuro Neuro: Alert and oriented X 3 Eye Opening: Spontaneous Motor: Obeys Commands Verbal: Oriented GCS Score: 15 Results - Vitals Vitals: Vital Signs - 24 hr 07/03/17 07/03/17 14:49 16:43 Temperature 36.1 C L Heart Rate 84 105 H Respiratory 24 25 H Rate Blood Pressure 170/73 H 156/77 H O2 Saturation 100 97 Oxygen O2 Source Room air - EKG (time done) 1902 Rate: Rate (enter#) (61) Rhythm: NSR Intervals: 1st degree AVB Ischemia: Other (tall Ts ant, flat inferior) - Tele (time rhythm occurred) 1830 Telemetry / rhythm strip: Other (cannot determin rhythm 2/2 parkinsons will get EKG) - Labs Labs: Laboratory Tests 07/03/17 07/03/17 07/03/17 15:22 15:22 18:20 WBC 10.6 RBC 3.38 L Hgb 9.4 L Hct 28.4 L MCV 84.0 MCH 27.7 MCHC 33.0 RDW 17.4 H Plt Count 319 MPV 6.0 L Neut # 7.1 H Lymph # 2.3 [place] # 0.6 Eos # 0.4 Baso # 0.1 Absolute Nucleated RBC 0.00 Nucleated RBC % 0.0 Sodium 138 Potassium 3.8 Chloride 101 Carbon Dioxide 26 Anion Gap 11.0 BUN 18 Creatinine 0.8 Estimated GFR (MDRD) 69 L Glucose 183 H Calcium 9.0 Urine Color YELLOW Urine Clarity CLOUDY Urine pH 7.0 Ur Specific [place] 1.025 Urine Protein 100 H Urine Glucose (UA) NEGATIVE Urine Ketones NEGATIVE Urine Occult Blood SMALL H Urine Nitrite POSITIVE H Urine Bilirubin NEGATIVE Urine Urobilinogen 0.2 (NORMAL) Ur Leukocyte Esterase MODERATE H Urine RBC TNTC H Urine WBC >25 H Ur Squamous Epith Cells FEW Squamous Urine Bacteria Many H Ur Microscopic Review INDICATED Urine Culture Comments INDICATED - Rads (name of study) CTH Radiology: See rad report (no acute) CT CS Radiology: See rad report (no acute) shoulder Radiology: See rad report (no acute) PD MEDICAL DECISION MAKING - ED course ED course: long-term reported green vag dc but nurse Valentine states no dc seen when she did in and out cath for UA profound weakness with numerous falls likely 2/2 UTI anemia not new EKG NSR don't feel pt safe for dc if she is weak and falling - nurse Valentine tried to call [facility] to discuss option but got no answer will admit Departure - Departure Disposition: ED Place in Observation Clinical Impression: Weakness UTI (urinary tract infection) Qualifiers: Urinary tract infection type: site unspecified Hematuria presence: with hematuria Qualified Code(s): N39.0 - Urinary tract infection, site not specified Fall Qualifiers: Encounter type: initial encounter Qualified Code(s): W19.XXXA - Unspecified fall, initial encounter Condition: Fair Discharge Date/Time: 07/03/17 21:05
--- NOTE | 2017-07-03 16:49 | XRAY Preliminary Report ---
Exam: XR SHOULDER 3 VIEW RT IMPRESSION: Mild degenerative changes with calcific periarthritis. [facility] SITE ID: [id number]
--- NOTE | 2017-07-03 16:51 | XRAY Report ---
EXAM: RIGHT SHOULDER RADIOGRAPHY EXAM DATE: 07/03/2017 04:43 PM. CLINICAL HISTORY: Fall, pain. COMPARISON: None. TECHNIQUE: 3 views. FINDINGS: Bones: Osteopenia. No definite fracture or other bone lesion. Joints: Mild degenerative changes. Anatomic alignment. Soft tissues: Soft tissue calcification adjacent to greater tuberosity. Clear visualized lung. IMPRESSION: Mild degenerative changes with calcific periarthritis. [facility] Referring Provider Line: [phone] SITE ID: [id number]
--- NOTE | 2017-07-03 16:56 | CT Preliminary Report ---
Exam: CT HEAD W/O IMPRESSION: Stable age-related cortical atrophic changes without evidence of acute intracranial abnor mality. [facility] SITE ID: [id number]
--- NOTE | 2017-07-03 16:58 | CT Report ---
EXAM: CT HEAD EXAM DATE: 07/03/2017 04:09 PM. CLINICAL HISTORY: Fall. Head injury. Neck pain. COMPARISON: 04/25/2017. TECHNIQUE: Multiaxial CT images were obtained from the foramen magnum to the vertex. IV contrast: Non e. Reformats: Coronal. In accordance with CT protocol optimization, one or more of the following dose reduction techniques w ere utilized for this exam: automated exposure control, adjustment of mA and/or KV based on patient s ize, or use of iterative reconstructive technique. FINDINGS: Parenchyma: No intraparenchymal hemorrhage. No evidence of mass, midline shift, or CT findings of acu te infarction. Lopez-white differentiation is distinct. Stable minimal chronic microangiopathic white matter changes are evident. Extraaxial Spaces: Normal for age. No subdural or epidural collections identified. Falx calcification noted. Ventricles: The ventricles and cortical sulci are prominent, consistent with age-related tissue loss. Sinuses and orbits: Imaged paranasal sinuses, orbits, and mastoids show no significant abnormality. Bones: No evidence of fracture or calvarial defect. Other: None. IMPRESSION: Stable age-related cortical atrophic changes without evidence of acute intracranial abnor mality. [facility] Referring Provider Line: [phone] SITE ID: [id number]
--- NOTE | 2017-07-03 17:03 | CT Preliminary Report ---
Exam: CT CERVICAL SPINE W/O IMPRESSION: 1. No acute cervical spine abnormalities. 2. Stable multilevel degenerative disk disease, severe C3-T1. [facility] SITE ID: [id number]
--- NOTE | 2017-07-03 17:05 | CT Report ---
EXAM: CT CERVICAL SPINE WITHOUT CONTRAST DATE: 07/03/2017 04:09 PM. HISTORY: Fall. Head injury. Neck pain. COMPARISONS: None. TECHNIQUE: Thin-section axial images were acquired of the cervical spine without contrast. Post-proce ssing: Coronal and sagittal reformats. Other: None. In accordance with CT protocol optimization, one or more of the following dose reduction techniques w ere utilized for this exam: automated exposure control, adjustment of mA and/or KV based on patient s ize, or use of iterative reconstructive technique. FINDINGS: Alignment: Normal. No scoliosis or spondylolisthesis. Bones: No fracture or bone lesion. Interspace Levels/Facets: C1-C2: Degenerative changes anteriorly. C2-C3: Mild disk space narrowing. C3-C4: Severe disk space narrowing with spurring. C4-C5: Severe disk space narrowing with spurring. Left foraminal narrowing. C5-C6: Severe disk space narrowing. C6-C7: Severe disk space narrowing. Posterior disk/osteophyte protrusion. C7-T1: Severe disk space narrowing.. Musculature: Normal. No fatty atrophy. Other: Thyroidectomy clips noted. The lung apices are clear. IMPRESSION: 1. No acute cervical spine abnormalities. 2. Stable multilevel degenerative disk disease, severe C3-T1. [facility] Referring Provider Line: [phone] SITE ID: [id number]
[2017-07-03 18:39] LABS: BILIRUBIN,URINE NEGATIVE (NEGATIVE)
[2017-07-03 18:50] LABS: UA w/ MICROSCOPIC CHARGE YES
[2017-07-03 18:51] LABS: UR CULTURE IF IND INDICATED; WBC,URINE >25 /HPF (0-5)
[2017-07-03] MEDS ORDERED: cefTRIAXone 1 GM in SODIUM CHLORIDE 0.9% MINIBAG 100 ML IV STA (18:55)
[2017-07-03] MEDS ORDERED: SODIUM CHLORIDE 0.9% 1,000 ML IV ONE (19:13)
[2017-07-03] MEDS ORDERED: cefTRIAXone 1 GM VIAL ONE (19:44)
[2017-07-03] MEDS ORDERED: SODIUM CHLORIDE FLUSH 0.9% 10 ML SYRINGE IVP PRN (20:20)
[2017-07-03] MEDS ORDERED: PROCHLORPERAZINE 10 MG/2 ML VIAL IVP PRN (20:20)
[2017-07-03] MEDS ORDERED: ZOLPIDEM 5 MG TABLET PO PRN (20:20)
[2017-07-03] MEDS ORDERED: HYDROcod/ACETAM 10 MG/325 MG TABLET PO PRN (20:20)
[2017-07-03] MEDS ORDERED: ONDANSETRON 4 MG/2 ML VIAL IVP PRN (20:20)
[2017-07-03] MEDS ORDERED: ACETAMINOPHEN 325 MG TABLET PO PRN (20:20)
[2017-07-03] MEDS ORDERED: HYDROcod/ACETAM 5/325 MG TABLET PO PRN (20:20)
[2017-07-03] MEDS ORDERED: SODIUM CHLORIDE 0.9% 1,000 ML IV SCH (21:00)
[2017-07-03] MEDS: PEG OP SCH ×2 (22:33→23:55)
[2017-07-03] MEDS: PROPYLENE GLYCOL OP SCH ×2 (22:33→23:55)
[2017-07-03] MEDS: INSULIN ASPART 300 UNIT/3 ML PEN SUBQ SCH (22:34)
[2017-07-03] MEDS: SODIUM CHLORIDE FLUSH 0.9% 10 ML SYRINGE IVP SCH (22:35)
[2017-07-03] MEDS: rOPINIRole 1 MG TABLET PO SCH (23:03)
--- NOTE | 2017-07-04 04:02 | HISTORY & PHYSICAL EXAMINATION ---
Chief Complaint - Chief Complaint Chief Complaint: Ground-level fall History of Present Illness - Admitted From Admitted From:: Emergency department - History Obtained From Records Reviewed: Yes History obtained from: Patient Exam Limitations: None - History of Present Illness HPI Comment/Other: Patient is an 82-year-old female with a past medical history significant for Parkinson's disease for the past 12 years, hypertension, diabetes, hypothyroidism, recurrent urinary tract infections and a history of non-Hodgkin' s lymphoma treated in 1985 who presented to the emergency department with a chief complaint of a ground-level fall. The patient lives at [facility] and was found on the ground of her carpeted room today. The patient was fully awake but had fallen to the floor. The fall was unwitnessed and the patient cannot completely remember the events that took place. When asked the patient states that she does not remember a whole lot about today. She does admit that she has been weaker than normal the last day or so. The patient also states that she is felt nauseated yesterday. The patient states that she did notice that today she has been having increased urinary frequency. The patient states that she did not sleep well last night. She denies any headaches or focal neurologic deficits. The patient also states that she had a cold 2-3 weeks ago which she is gotten over. The patient denies any fevers or chills. Patient denies any headaches, blurred vision, runny nose, sore throat, nasal congestion, neck pain, difficulty swallowing, chest pain, shortness of air, orthopnea, increased lower extremity swelling, PND, abdominal pain, diarrhea, constipation, dysuria, joint pain, joint swelling, muscle aches, back pain, neck stiffness, recent unintentional weight loss or decreased appetite. On presentation to the emergency department the patient was afebrile and slightly tachycardic with a heart rate of 105 otherwise she was hypertensive but was not in any respiratory distress. The patient underwent routine lab work which did reveal hemoglobin of 9.4 which was near her baseline. The patient had no leukocytosis and her electrolytes were all within normal limits. The patient's urine analysis did reveal small occult blood with positive nitrite, moderate leukocyte esterase, RBCs and greater than 25 WBCs with many bacteria. Given the patient's generalized weakness and fall at [facility] in conjunction with this newly found urinary tract infection it was felt the patient would be best served spending the night in the hospital under observation getting IV antibiotics and IV fluids and being seen by physical therapy in the morning. The patient did undergo imaging of her head shoulder and cervical spine in the emergency department which did not show any acute fractures or head bleed. History - Past Medical History Cardiovascular: reports: Hypertension Respiratory: reports: None Neuro: reports: Parkinson's Endocrine/Autoimmune: reports: Type 2 diabetes, HyPOthyroidism GI: reports: GERD : reports: None HEENT: reports: None Psych: reports: None Musculoskeletal: reports: Osteoarthritis Derm: reports: None MRSA Hx?: No Other Past Medical History: History of non-Hodgkin's lymphoma - Past Surgical History General: reports: Other HEENT: reports: Tonsil/Adenoidectomy - Family & Social History Family History: Mother: (Mom lived to the age of 91 and was healthy), Father: , CVA/TIA, Other family: Diabetes, Type 2 (Paternal grandmother had diabetes) Living arrangement: Assisted living Living Situation: With spouse/s.o. Social History Notes: Patient was born and raised in [place], [place]. She lived in [place] all her life until March 2017 when she moved to [facility] living [facility] with her partner. Her and her partner have been together for 21 years. The patient has 3 children 1 of whom lives in [place], [place], 1 of whom lives in [place] and 1 of whom lives in [place]. The patient uses a wheelchair and walker at the assisted living facility. The patient quit smoking about 40 years ago and smoked less than a pack a day for about 20 years. The patient denies any illicit drug use. She states that she rarely drinks. - POLST Patient has POLST: Yes POLST Status: DNR Meds/Allgy - Home Medications Home Medications: Ambulatory Orders Medication Instructions Recorded Confirmed Aspirin Chewable [St 81 mg PO DAILY 04/18/17 07/03/17 Aspirin] Atenolol 25 mg PO DAILY 04/18/17 07/03/17 Atenolol 50 mg PO DAILY PM 04/18/17 07/03/17 Calcitonin,[place],Synthetic 1 spray NS DAILY 04/18/17 07/03/17 [Miacalcin] Calcium Carbonate [Tums (Calcium 1,000 mg PO DAILY 04/18/17 07/03/17 Carbonate 500mg)] Carbidopa/Levodopa [Carbidopa-Levo 1 each PO TID 04/18/17 07/03/17 ER 50-200 Tab] Carbidopa/Levodopa 0.5 each PO TID 04/18/17 07/03/17 [Carbidopa-Levodopa 25-100 Tab] Cholecalciferol (Vitamin D3) 4,000 unit PO QDAC 04/18/17 07/03/17 [Vitamin D3] Glipizide [Glipizide ER] 5 mg PO DAILY 04/18/17 07/03/17 Levothyroxine [Synthroid] 175 mcg PO QDAC 04/18/17 07/03/17 Lisinopril 20 mg PO DAILY 04/18/17 07/03/17 Meclizine HCl [Motion Sickness 25 mg PO Q4H PRN 04/18/17 07/03/17 Relief] Propylene Glycol/Peg 400 1 drops OP Q2H MDD during waking 04/18/17 07/03/17 [Lubricant Eye Drops] hours only Ropinirole HCl 1 mg PO TID 04/18/17 07/03/17 Ranitidine HCl [Zantac] 10 ml PO BID 05/21/17 07/03/17 Tylenol Extra Strength Liquid 31.25 ml PO Q4H PRN 05/21/17 07/03/17 160mg/5ml Digestive Advantage Gummie Tablet 2 unit PO DAILY 06/11/17 07/03/17 Probiotic Nitrofurantoin Monohyd/M-Cryst 07/03/17 [Macrobid 100 mg Capsule] - Allergies Allergies/Adverse Reactions: Allergies Allergy/AdvReac Type Severity Reaction Status Date / Time ciprofloxacin [From Cipro] Allergy Unknown Verified 04/25/17 01:47 ciprofloxacin HCl * Allergy Unknown Verified 04/25/17 01:47 [From Cipro] hydromorphone HCl * Allergy Unknown Verified 04/25/17 01:47 [From Dilaudid] levofloxacin [From Levaquin] Allergy Unknown Verified 04/25/17 01:47 sertraline HCl * Allergy Unknown Verified 04/25/17 01:47 [From Zoloft] Review of Systems - Other Findings Other Findings: A comprehensive review of systems was performed the pertinent positives and negatives are stated above in the HPI and the remainder of the review of systems is negative. Exam - Vital Signs Reviewed Vital Signs: Yes Vital Signs: Vital Signs x48h Temp Pulse Pulse Resp BP BP Pulse Ox 07/03/17 23:30 36.9 C 72 20 135/72 H 100 07/03/17 21:21 36.5 C 66 20 156/76 H 100 07/03/17 20:38 71 20 171/140 H 99 - Physical Exam General Appearance: positive: No acute distress, Alert, Other (Masked facies, mild resting tremor.) Eyes Bilateral: positive: Normal inspection, PERRL, EOMI, No lid inflammation, Conjunctivae nml, No scleral icterus ENT: positive: ENT inspection nml, Pharynx nml, Dry mucous membranes. negative : Purulent nasal drainage, Pharyngeal erythema, Oral lesions Neck: positive: Nml inspection, Thyroid nml, No JVD, Trachea midline. negative : Lymphadenopathy (R), Lymphadenopathy (L), Carotid bruit, Tracheal deviation Respiratory: positive: Chest non-tender, No respiratory distress, Breath sounds nml. negative: Wheezes, Rales, Rhonchi Cardiovascular: positive: Regular rate & rhythm, No murmur, No gallop Peripheral Pulses: positive: 2+ Abdomen: positive: Non-tender, No organomegaly, Nml bowel sounds, No distention Back: positive: Nml inspection. negative: CVA tenderness (R), CVA tenderness (L ) Skin: positive: Color nml, No rash, Dry. negative: Diaphoresis, Pallor Extremities: positive: Nml appearance, No pedal edema, Other (Cogwheel rigidity) Neurologic/Psychiatric: positive: Oriented x3, CN's nml (2-12), Motor nml, Sensation nml, Mood/affect nml Conclusion/Plan - Problem List (1) UTI (urinary tract infection) Conclusion/Plan: Patient presents to the emergency department with a ground-level fall. The patient was alert and had no altered mental focal neurologic deficits. She underwent CT head which was negative. The patient did have some generalized weakness and her urinalysis was grossly positive for urinary tract infection. Patient does have history of recurrent UTIs. Plan: Patient will be placed on IV ceftriaxone for urinary tract infection We will await urine culture Patient will be given IV fluids Qualifiers: Urinary tract infection type: site unspecified Hematuria presence: with hematuria Qualified Code(s): N39.0 - Urinary tract infection, site not specified; R31.9 - Hematuria, unspecified; R31.9 - Hematuria, unspecified (2) Fall Conclusion/Plan: The patient presented to the emergency department with a fall. Patient does not appear to have had any loss of consciousness and did not have any major abrasions or bumps on her head. The patient did undergo imaging with CT head, CT cervical spine and x-ray of her shoulder. The imaging was all negative for any acute fractures or bleed. The patient was having generalized weakness which led to her fall and it is thought that this was likely secondary to a urinary tract infection as she was found to have a UTI on presentation. Patient also seemed to be somewhat dry and dehydrated. Plan: Patient will be assessed by physical therapy in the morning Patient will be given IV fluids and antibiotics Patient will likely need increased care at her assisted living facility prior to discharge. Qualifiers: Encounter type: initial encounter Qualified Code(s): W19.XXXA - Unspecified fall, initial encounter (3) DM2 (diabetes mellitus, type 2) Conclusion/Plan: Patient has history of diabetes and is on glipizide at home. The patient's glucose on presentation was elevated at 183. Plan: Patient be placed on sliding scale insulin while she is hospitalized We will hold the patient's home glipizide Patient will be placed on a diabetic diet We will check the patient's hemoglobin A1c We will monitor patient's blood glucose before meals at bedtime (4) HTN (hypertension) Conclusion/Plan: Patient has history of hypertension and was quite hypertensive on presentation to the emergency department. The patient does use lisinopril and atenolol for her hypertension at home. Patient will be continued on her home medications We will continue to monitor the patient's blood pressure We will titrate medications as needed (5) Hypothyroid Conclusion/Plan: Patient has history of hypothyroidism and is on Synthroid at home Patient appears to be stable she is not having any symptoms of hypothyroid (6) Parkinson disease Conclusion/Plan: Patient has Parkinson's disease. The patient does have cogwheel rigidity and has masked facies consistent with Parkinson's. Patient also has a shuffled gait and does use a walker and wheelchair at her assisted living facility. Given that the patient did have a fall earlier today and has been having some generalized weakness we would think it would be best for the patient to be assessed by physical therapy to ensure that she will be safe to return to her assisted living facility. Next line plan: Patient will be continued on her carbidopa/levodopa and ropinirole. (7) DVT prophylaxis Conclusion/Plan: Patient will be placed on Lovenox while she is hospitalized for DVT prophylaxis. - Lab Results Lab results reviewed: Yes Fish Bones: 07/03/17 15:22 07/03/17 15: Other Lab Results: Laboratory Results WBC 10.6 x10^3/uL (4.8-10.8) 07/03/17 15: RBC 3.38 10^6/uL (4.20-5.40) L 07/03/17 15: Hgb 9.4 g/dL (12.0-16.0) L 07/03/17: Hct 28.4 % (37.0-47.0) L 07/03/17 15: MCV 84.0 fL (81.0-99.0) 07/03/17: MCH 27.7 pg (27.0-31.0) 07/03/17 15: MCHC 33.0 g/dL (32.0-36.0) 07/03/17: RDW 17.4 % (12.0-15.0) H 07/03/17 15: Plt Count 319 10^3/uL (130-450) 07/03/17 15: MPV 6.0 fL (7.9-10.8) L 07/03/17: Neut # 7.1 10^3/uL (1.5-6.6) H 07/03/17: Lymph # 2.3 10^3/uL (1.5-3.5) 07/03/17: [place] # 0.6 10^3/uL (0.0-1.0) 07/03/17: Eos # 0.4 10^3/uL (0.0-0.7) 07/03/17 15: Baso # 0.1 10^3/uL (0.0-0.1) 07/03/17: Absolute Nucleated RBC 0.00 x10^3/uL 07/03/17:22 Nucleated RBC % 0.0 /100WBC 07/03/17 15:22 Sodium 138 mmol/L (135-145) 07/03/17 15:22 Potassium 3.8 mmol/L (3.5-5.0) 07/03/17 15: Chloride 101 mmol/L (101-111) 07/03/17 15: Carbon Dioxide 26 mmol/L (21-32) 07/03/17 15: Anion Gap 11.0 (6-13) 07/03/17 15:22 BUN 18 mg/dL (6-20) 07/03/17 15:22 Creatinine 0.8 mg/dL (0.4-1.0) 07/03/17 15:22 Estimated GFR (MDRD) 69 (>89) L 07/03/17 15: Glucose 183 mg/dL (70-100) H 07/03/17 15: Calcium 9.0 mg/dL (8.5-10.3) 07/03/17 15:22 Urine Color YELLOW 07/03/17 18:20 Urine Clarity CLOUDY (CLEAR) 07/03/17 18:20 Urine pH 7.0 PH (5.0-7.5) 07/03/17 18:20 Ur Specific [place] 1.025 (1.002-1.030) 07/03/17 18:20 Urine Protein 100 mg/dL (NEGATIVE) H 07/03/17 18:20 Urine Glucose (UA) NEGATIVE mg/dL (NEGATIVE) 07/03/17 18:20 Urine Ketones NEGATIVE mg/dL (NEGATIVE) 07/03/17 18:20 Urine Occult Blood SMALL (NEGATIVE) H 07/03/17 18:20 Urine Nitrite POSITIVE (NEGATIVE) H 07/03/17 18:20 Urine Bilirubin NEGATIVE (NEGATIVE) 07/03/17 18:20 Urine Urobilinogen 0.2 (NORMAL) E.U./dL (NORMAL) 07/03/17 18:20 Ur Leukocyte Esterase MODERATE (NEGATIVE) H 07/03/17 18:20 Urine RBC TNTC /HPF (0-5) H 07/03/17 18:20 Urine WBC >25 /HPF (0-5) H 07/03/17 18:20 Ur Squamous Epith Cells FEW Squamous (<= Few) 07/03/17 18:20 Urine Bacteria Many /HPF (None Seen) H 07/03/17 18:20 Ur Microscopic Review INDICATED 07/03/17 18:20 Urine Culture Comments INDICATED 07/03/17 18:20 - Diagnostic Imaging Results Diagnostic Imaging Results: positive: Final report reviewed Diagnostic Imaging Results Comments: CT cervical spine Impression: 1. No acute cervical spine abnormalities. 2. Stable multilevel degenerative disc disease, severe C3 through T1 CT head Impression: Stable age-related cortical atrophic changes without evidence of acute intracranial abnormality Shoulder x-ray Impression: Mild degenerative changes with calcific periarthritis. Issues/Core Measures - Anticipated LOS Anticipated Stay Length: Less than 2 midnights - DVT/VTE - Prophylaxis VTE/DVT Prophylaxis med ordered at admit?: Yes
[2017-07-04 05:51] LABS: BASOPHILS # (AUTO) 0.1 10^3/uL (0.0-0.1); BASOPHILS % (AUTO) 0.8 %; EOSINOPHILS # (AUTO) 0.4 10^3/uL (0.0-0.7); EOSINOPHILS % (AUTO) 3.9 %; HCT - HEMATOCRIT 30.6 % (37.0-47.0); HGB - HEMOGLOBIN 9.7 g/dL (12.0-16.0); LYMPHOCYTES # (AUTO) 2.6 10^3/uL (1.5-3.5); MEAN CORPUSCULAR HGB CONC 31.8 g/dL (32.0-36.0); MEAN CORPUSCULAR VOLUME 84.8 fL (81.0-99.0); MEAN PLATELET VOLUME 6.3 fL (7.9-10.8); MONOCYTES # (AUTO) 0.8 10^3/uL (0.0-1.0); MONOCYTES % (AUTO) 7.7 %; NEUTROPHILS # (AUTO) 6.8 10^3/uL (1.5-6.6); NEUTROPHILS % (AUTO) 63.6 %; RED BLOOD COUNT 3.61 10^6/uL (4.20-5.40); RED CELL DISTRIBUTION WIDTH 17.3 % (12.0-15.0); UNCORRECTED WHITE BLOOD COUNT 10.7 x10^3/uL; WHITE BLOOD COUNT 10.7 x10^3/uL (4.8-10.8)
[2017-07-04] MEDS: PEG OP SCH ×2 (06:02→06:03)
[2017-07-04] MEDS: PROPYLENE GLYCOL OP SCH ×2 (06:02→06:03)
[2017-07-04 06:03] LABS: ALBUMIN/GLOBULIN RATIO 0.8 (1.0-2.2); BILIRUBIN,TOTAL 0.2 mg/dL (0.2-1.0); BUN - BLOOD UREA NITROGEN 15 mg/dL (6-20); CALCIUM 9.1 mg/dL (8.5-10.3); CARBON DIOXIDE - CO2 26 mmol/L (21-32); CHLORIDE 101 mmol/L (101-111); CREATININE 0.7 mg/dL (0.4-1.0); GFR - MDRD 81 (>89); GLUCOSE 114 mg/dL (70-100); POTASSIUM 3.5 mmol/L (3.5-5.0); SODIUM 138 mmol/L (135-145); TOTAL PROTEIN 6.7 g/dL (6.7-8.2)
[2017-07-04] MEDS: SODIUM CHLORIDE FLUSH 0.9% 10 ML SYRINGE IVP SCH ×2 (06:04→08:11)
[2017-07-04 06:16] LABS: HEMOGLOBIN A1C 0.53 g/dL
[2017-07-04] MEDS: rOPINIRole 1 MG TABLET PO SCH ×2 (06:52→14:07)
[2017-07-04] MEDS ORDERED: LEVOTHYROXINE 25 MCG TABLET PO SCH (07:00)
[2017-07-04] MEDS ORDERED: LEVOTHYROXINE 125 MCG TABLET PO SCH ×2 (07:00)
[2017-07-04] MEDS ORDERED: CHOLECALCIFEROL 1,000 UNIT TABLET PO SCH (07:00)
[2017-07-04] MEDS ORDERED: CARBOXYMETHYLCELLULOSE OPHTH DROPS EACHEYE PRN (07:10)
[2017-07-04] MEDS: CARBIDOPA/LEVODOPA 25 MG/100 MG TABLET PO SCH ×3 (07:32→14:06)
[2017-07-04] MEDS: CARBIDOPA/LEVODOPA ER 50 MG/200 MG TABLET PO SCH ×3 (07:32→14:06)
[2017-07-04] MEDS ORDERED: SACCHAROMYCES BOULARDII 250 MG CAPSULE PO SCH (08:00)
[2017-07-04] MEDS: INSULIN ASPART 300 UNIT/3 ML PEN SUBQ SCH ×2 (08:11→14:05)
[2017-07-04] MEDS ORDERED: CALCIUM CARBONATE CHEW 500 MG TABLET PO SCH (09:00)
[2017-07-04] MEDS ORDERED: ATENOLOL 25 MG TABLET PO SCH ×2 (09:00→21:00)
[2017-07-04] MEDS ORDERED: LISINOPRIL 20 MG TABLET PO SCH (09:00)
[2017-07-04] MEDS ORDERED: FAMOTIDINE 20 MG TABLET PO SCH (09:00)
[2017-07-04] MEDS ORDERED: POLYETHYLENE GLYCOL 3350 17 GM PACKET PO SCH (09:00)
[2017-07-04] MEDS ORDERED: ASPIRIN CHEW 81 MG TABLET PO SCH (09:00)
[2017-07-04] MEDS ORDERED: cefTRIAXone 1 GM in SODIUM CHLORIDE 0.9% MINIBAG 100 ML IV SCH (09:00)
[2017-07-04] MEDS ORDERED: ENOXAPARIN 40 MG/0.4 ML SYRINGE SUBQ SCH (09:00)
--- NOTE | 2017-07-04 11:28 | Discharge Plan ---
Discharge Plan Disposition: 01 Home, Self Care Condition: Stable Prescriptions: Sulfamethox/Trimeth 800/160 [Bactrim Ds 800/160] 1 each PO BID #16 tablet Diet: Diabetic Activity Restrictions: Activity as Tolerated Shower Restrictions: No Weight Bearing: Full Weight Additional Instructions or Follow Up instructions: May follow up PCP in one week and have UA in one week. Follow-Up Care: [facility] - Medical, [facility] - Diabetes Ed No Smoking: If you smoke, Please STOP! Call for help. Follow-up with: RAHUL LONGO [Primary Care Provider] -
[2017-07-04 11:33] VITALS: BP 140/57
--- NOTE | 2017-07-04 12:18 | DISCHARGE SUMMARY ---
Discharge Summary Admit Date: 07/03/17 Discharge Date: 07/04/17 Discharging Provider: PHELPS Primary Care Provider: Volodymyr Can Condition at Discharge: Stable Discharge Disposition: 01 Home, Self Care Discharge Facility Name: home - DIAGNOSES Admission Diagnoses: 1) UTI (urinary tract infection) (2) Fall (3) DM2 (diabetes mellitus, type 2) (4) HTN (hypertension) (5) Hypothyroid (6) Parkinson disease Discharge Diagnoses with Status of Each Condition: (1) UTI (urinary tract infection) Pt is treated with rocephin IV in the hospital. Pt state"I am not doing well in the hospital, please let me go home." pt also state she had hx of severe Parkinson's disease, she need to have good sleep. Urine sensitive study reveals positive E.Coli, sensitive to Bactrim. pt is prescribed Bactrim. (2) Fall no injure reported. pt state she has the help, fall precaution (3) DM2 (diabetes mellitus, type 2) stable, continue management (4) HTN (hypertension) stable (5) Hypothyroid stable (6) Parkinson disease continue home regime, follow up pt's neurologist - HPI History of Present Illness: please refer from Dr. Figueroa's HPI on 07/04/17 as the following: Patient is an 82-year-old female with a past medical history significant for Parkinson's disease for the past 12 years, hypertension, diabetes, hypothyroidism, recurrent urinary tract infections and a history of non-Hodgkin' s lymphoma treated in 1985 who presented to the emergency department with a chief complaint of a ground-level fall. The patient lives at [facility] and was found on the ground of her carpeted room today. The patient was fully awake but had fallen to the floor. The fall was unwitnessed and the patient cannot completely remember the events that took place. When asked the patient states that she does not remember a whole lot about today. She does admit that she has been weaker than normal the last day or so. The patient also states that she is felt nauseated yesterday. The patient states that she did notice that today she has been having increased urinary frequency. The patient states that she did not sleep well last night. She denies any headaches or focal neurologic deficits. The patient also states that she had a cold 2-3 weeks ago which she is gotten over. The patient denies any fevers or chills. Patient denies any headaches, blurred vision, runny nose, sore throat, nasal congestion, neck pain, difficulty swallowing, chest pain, shortness of air, orthopnea, increased lower extremity swelling, PND, abdominal pain, diarrhea, constipation, dysuria, joint pain, joint swelling, muscle aches, back pain, neck stiffness, recent unintentional weight loss or decreased appetite. On presentation to the emergency department the patient was afebrile and slightly tachycardic with a heart rate of 105 otherwise she was hypertensive but was not in any respiratory distress. The patient underwent routine lab work which did reveal hemoglobin of 9.4 which was near her baseline. The patient had no leukocytosis and her electrolytes were all within normal limits. The patient's urine analysis did reveal small occult blood with positive nitrite, moderate leukocyte esterase, RBCs and greater than 25 WBCs with many bacteria. Given the patient's generalized weakness and fall at [facility] in conjunction with this newly found urinary tract infection it was felt the patient would be best served spending the night in the hospital under observation getting IV antibiotics and IV fluids and being seen by physical therapy in the morning. The patient did undergo imaging of her head shoulder and cervical spine in the emergency department which did not show any acute fractures or head bleed. - HOSPITAL COURSE Hospital Course: pt was admitted for UTI and fall. pt is oriented today. pt's UTI is treat with Rocephin, and follow up UA and sensitive study. No injury was reported. Pt strongly request to be D/C today to the place where she is living. pt is prescribed Bactrim - ALLERGIES Allergies/Adverse Reactions: Allergies Allergy/AdvReac Type Severity Reaction Status Date / Time ciprofloxacin [From Cipro] Allergy Unknown Verified 04/25/17 01:47 ciprofloxacin HCl * Allergy Unknown Verified 04/25/17 01:47 [From Cipro] hydromorphone HCl * Allergy Unknown Verified 04/25/17 01:47 [From Dilaudid] levofloxacin [From Levaquin] Allergy Unknown Verified 04/25/17 01:47 sertraline HCl * Allergy Unknown Verified 04/25/17 01:47 [From Zoloft] - MEDICATIONS Home Medications: Ambulatory Orders Medication Instructions Recorded Confirmed Aspirin Chewable [St 81 mg PO DAILY 04/18/17 07/04/17 Aspirin] Atenolol 25 mg PO DAILY 04/18/17 07/04/17 Atenolol 50 mg PO DAILY PM 04/18/17 07/04/17 Calcitonin,[place],Synthetic 1 spray CHINTAN DAILY 04/18/17 07/04/17 [Miacalcin] Calcium Carbonate [Tums (Calcium 1,000 mg PO DAILY 04/18/17 07/04/17 Carbonate 500mg)] Carbidopa/Levodopa [Carbidopa-Levo 1 each PO 0800,1200,1800 04/18/17 07/04/17 ER 50-200 Tab] Carbidopa/Levodopa 0.5 each PO 0800,1200,1800 04/18/17 07/04/17 [Carbidopa-Levodopa 25-100 Tab] Cholecalciferol (Vitamin D3) 4,000 unit PO DAILY 04/18/17 07/04/17 [Vitamin D3] Glipizide [Glipizide ER] 5 mg PO DAILY 04/18/17 07/04/17 Levothyroxine [Synthroid] 175 mcg PO QDAC 04/18/17 07/04/17 Lisinopril 20 mg PO DAILY 04/18/17 07/04/17 Meclizine HCl [Motion Sickness 25 mg PO QID PRN 04/18/17 07/04/17 Relief] Ropinirole HCl 1 mg PO 0800,1200,1800 04/18/17 07/04/17 Ranitidine HCl [Zantac] 150 mg PO BID 05/21/17 07/04/17 Acetaminophen 1,000 mg PO Q4H PRN 07/04/17 07/04/17 Loperamide [Imodium] 2 mg PO PRN PRN 07/04/17 07/04/17 Polyvinyl Alcohol [Artificial 2 drops EACHEYE Q2H 07/04/17 07/04/17 Tears] Sulfamethox/Trimeth 800/160 1 each PO BID #16 tablet 07/04/17 [Bactrim Ds 800/160] - PHYSICAL EXAM AT DISCHARGE General Appearance: positive: No acute distress, Alert. negative: Lethargic Eyes Bilateral: positive: Normal inspection, PERRL, No lid inflammation, Conjunctivae nml ENT: positive: ENT inspection nml, Pharynx nml, No signs of dehydration. negative: Purulent nasal drainage, Pharyngeal erythema, Oral lesions Neck: positive: Nml inspection, Thyroid nml, Trachea midline. negative: Thyromegaly, Lymphadenopathy (R), Lymphadenopathy (L), Stiff neck, Carotid bruit , Swelling/bruising, Tracheal deviation Respiratory: positive: Chest non-tender, No respiratory distress, Breath sounds nml. negative: Wheezes, Rales, Rhonchi Cardiovascular: positive: Regular rate & rhythm, No murmur, No gallop. negative : Irregularly irregular, Extrasystoles, Tachycardia, Bradycardia, Systolic murmur, Diastolic murmur Peripheral Pulses: positive: 2+ Abdomen: positive: Non-tender, No organomegaly, Nml bowel sounds, No distention. negative: Tenderness, Guarding, Rebound Back: positive: Nml inspection. negative: CVA tenderness (R), CVA tenderness (L ) Skin: positive: Color nml, No rash, Warm, Dry. negative: Cyanosis, Diaphoresis , Pallor, Decubitus Extremities: positive: Non-tender, Full ROM, Nml appearance. negative: Calf tenderness, Joint swelling, Jacquie's sign/cords Neurologic/Psychiatric: positive: Oriented x3, Motor nml, Sensation nml, Mood/ affect nml. negative: Sensory loss, Facial droop, Slurred/abnml speech, Depressed mood/affect - LABS Result Diagrams: 07/04/17 04:57 07/04/17 04:57 - FOLLOW UP Follow Up: pt is advised to follow up PCP and have UA in one week. Pt is prescribed Bactrim at D/C. UA study reveals positive E.coli, sensitive to Bactrim.
== END 2017-07-04 15:15 | disposition home or self-care (01) ==
LOC: EDUNIT# → ED 14:45 → OBS 20:20
PROVIDERS: ADMIT Internal Medicine; ATTEND Nurse Practitioner Gerontology
DX: N39.0 Urinary tract infection, site not specified (principal); R31.29 Other microscopic hematuria; B96.20 Unspecified Escherichia coli [E. coli] as the cause of diseases classified elsewhere; S40.211A Abrasion of right shoulder, initial encounter; W18.30XA Fall on same level, unspecified, initial encounter; Y92.092 Bedroom in other non-institutional residence as the place of occurrence of the external cause; D64.9 Anemia, unspecified; G20 Parkinson's disease; I10 Essential (primary) hypertension; E11.9 Type 2 diabetes mellitus without complications; E03.9 Hypothyroidism, unspecified; K21.9 Gastro-esophageal reflux disease without esophagitis; Z79.82 Long term (current) use of aspirin; Z79.84 Long term (current) use of oral hypoglycemic drugs; Z85.72 Personal history of non-Hodgkin lymphomas; Z87.891 Personal history of nicotine dependence; Z66 Do not resuscitate
CPT/HCPCS: 36415; 70450; 72125; 73030; 80048; 80053; 81001; 83036; 85025; 87086; 87181; 93005; 96361; 96365; 96376; 99283; 99284; A9270; G0378; 81003

== ENCOUNTER 2017-07-08 13:30 | Outpatient (CLI) | payer MEDICARE, OTHER ==
--- NOTE | 2017-07-08 16:23 | CONSULTATION NOTE ---
Palliative Care Follow Up - Referral Referring Provider: Dr Reyes Lundy Time of Visit: 13:30 Referral setting: Assisted living (Seen in home setting, [facility] his [facility] facility, due to taxing and considerable effort required to leave the facility due to very limited mobility and declining functionality with increasing altered mental status secondary to advanced Parkinson's disease. ) - Information Sources Records reviewed: Previous records reviewed History/Review of Systems obtained from: Patient, Family, Nursing, Other ( physical therapist) Exam limitations: Clinical condition (drowsiness) - History of Present Illness Update Brief HPI Update: This is an 82-year-old woman with a long history of progressive Parkinson's as well as hypertension, DM type II, hypothyroidism, recurrent UTIs and increasingly frequent falls. She also has a distant history of non-Hodgkin's lymphoma, including chemotherapy between 1985 and 1990. She was recently from hospital overnight observation last week after falling and being diagnosed with a UTI. Previous to this she was hospitalized in both December and March 2017 for fall and UTI, and had a CT for another fall on 04/25/17. During this hospital observation she had a head CT which showed no evidence of acute intracranial abnormality, CT of cervical spine revealing no fracture or bone lesion, and R should radiography that showed no fracture or bone lesion. She was DC'd from observation with diagnosed UTI and started on Bactrim DS for 8 days. I did a follow up visit today and it was like visiting two different patients. During the first part, she was lying in her recliner chair, asleep. I attempted to rouse her and she did, with great difficulty, but never opened her eyes. She was extremely groggy and somnolent, with slow, low, but coherent responses. She reported no pain or discomfort. She states she's not doing very well and feels that "It may not be very long." When I asked if she was referring to dying, she said yes. She said "Let me in peace," which might have referred more to her annoyance at my asking questions than at believing she was imminently dying. I queried her more, specifically about Hospice, and she said she doesn't want to , though she knows "it's got to happen some time." When she finally did rouse, she was completely different. She became alert, articulate, ornery ("I'm happy because you'll be going soon") and once she awakened, she displayed quite significant ataxia. Per Nursing and Jesse, the Physical Therapist Sole Assessor (who is the son of her partner), this level of extreme ataxia is not unusual. She has, in the past, been standing with her walker and has thrown it against the wall. It is not clear if this was intentional or inadvertent. Once alert, she confirmed she is not ready for Hospice, she does not want to , and she wants to continue with PT and OT with the goal of improving her strength and control. Last week Home Health group discharged her from Nursing (wound care) and therapy (PT, OT, ST) per her request because she prefers [facility]'s therapy department. The staff at [facility] will monitor her sacral wound and provide some level of wound care. I will write a new referral for therapy. She displays increased confusion and aggression, per Nursing and Elan, her partner. This morning she banged her walker on the door of her neighbor and her personal items were found in his room; they do not know how that happened. Her moods are volatile, today she refused medications and was verbally aggressive to the staff. Medications/Allergies - Medications Home Medications: Ambulatory Orders Medication Instructions Recorded Confirmed Aspirin Chewable [St 81 mg PO DAILY 04/18/17 07/04/17 Aspirin] Atenolol 25 mg PO DAILY 04/18/17 07/04/17 Atenolol 50 mg PO DAILY PM 04/18/17 07/04/17 Calcitonin,[place],Synthetic 1 spray CHINTAN DAILY 04/18/17 07/04/17 [Miacalcin] Calcium Carbonate [Tums (Calcium 1,000 mg PO DAILY 04/18/17 07/04/17 Carbonate 500mg)] Carbidopa/Levodopa [Carbidopa-Levo 1 each PO 0800,1200,1800 04/18/17 07/04/17 ER 50-200 Tab] Carbidopa/Levodopa 0.5 each PO 0800,1200,1800 04/18/17 07/04/17 [Carbidopa-Levodopa 25-100 Tab] Cholecalciferol (Vitamin D3) 4,000 unit PO DAILY 04/18/17 07/04/17 [Vitamin D3] Glipizide [Glipizide ER] 5 mg PO DAILY 04/18/17 07/04/17 Levothyroxine [Synthroid] 175 mcg PO QDAC 04/18/17 07/04/17 Lisinopril 20 mg PO DAILY 04/18/17 07/04/17 Meclizine HCl [Motion Sickness 25 mg PO QID PRN 04/18/17 07/04/17 Relief] Ropinirole HCl 1 mg PO 0800,1200,1800 04/18/17 07/04/17 Ranitidine HCl [Zantac] 150 mg PO BID 05/21/17 07/04/17 Acetaminophen 1,000 mg PO Q4H PRN 07/04/17 07/04/17 Loperamide [Imodium] 2 mg PO PRN PRN 07/04/17 07/04/17 Polyvinyl Alcohol [Artificial 2 drops EACHEYE Q2H 07/04/17 07/04/17 Tears] Sulfamethox/Trimeth 800/160 1 each PO BID #16 tablet 07/04/17 [Bactrim Ds 800/160] - Allergies Allergies/Adverse Reactions: Allergies Allergy/AdvReac Type Severity Reaction Status Date / Time ciprofloxacin [From Cipro] Allergy Unknown Verified 04/25/17 01:47 ciprofloxacin HCl * Allergy Unknown Verified 04/25/17 01:47 [From Cipro] hydromorphone HCl * Allergy Unknown Verified 04/25/17 01:47 [From Dilaudid] levofloxacin [From Levaquin] Allergy Unknown Verified 04/25/17 01:47 sertraline HCl * Allergy Unknown Verified 04/25/17 01:47 [From Zoloft] Palliative Care - POLST Patient has POLST: Yes POLST Status: DNR, Comfort Measures Pain: No pain Tiredness/Fatigue: Severe (7-10) Drowsiness/Sedation: Severe (7-10), Comment (Could be a Parkinson's "freeze." She goes in and out of it quickly) Dyspnea: None Sleep: Other (sleeps a lot) Constipation: No Performance Status: Current level of functioning: Can ambulate with walker. Uses wheelchair more often. Ataxia quite significant. Sleeps a lot. - Palliative Care Discussion: Who is present: Patient and myself. Art, her partner, is in next room Surrogate decision maker: Daughter Yazmin Ram, MOHIT. [phone] mobile Most important goals: She is DNR and comfort measures, "does not want to " and states she feels she is close to dying. She is not ready to transition to Hospice, and does not meet criteria. She wants to continue PT and OT with the team at [facility]. Home Health Wound Care has been discharged at patient's request , and a new order for PT, OT, and ST (for achalasia evaluation, treatment) has been done, so she can restart therapy with [facility]. Patient/family concerns: Her confusion and aggression are increasing. (Banging walker against neighbor's door; episodes of verbal aggression with business support administrator ). I left voicemail for daughter to follow up and see if she is due for a neurology follow up appointment. Impression and Recommendations - Palliative Care Impression: This is an 82 year old woman with advanced Parkinson disease and increasing weakness, falls, UTIs and declining strength and functionality. She had another overnight observation/hospitalization last week after another fall, and was diagnosed with UTI. She was discharged home with antibiotics and she wishes to continue PT, OT. Home Health was stopped at patient's request so she could continue with therapist team at [facility] with goal of strengthening and decreasing falls. Hospice was discussed and currently she does not meet criteria as it does not meet her goals of care, which is to continue therapy. Palliative Care will continue to monitor, and refer to Hospice when appropriate. Her Parkinson's symptoms increase, would benefit from Neurology follow up and medication management. Recommendations/Counseling Done: UTI: IV antibiotics while under hospital observation (IV ceftriaxone). Discharged on Bactrim DS BID x 16 doses. s/p Fall: CT head, CT cervical spine and xray of R shoulder all negative for any acute fractures or bleed. Sacral wound: Stopped Home Health nursing/wound care at patient's request. Wound is not bothering her much, care staff at facility will monitor and manage wound care. Parkinson's: Increasing weakness and confusion and periods of "freezing". Referred to [facility] PT, OT, and ST (for achalasia) for evaluation and treatment. Continue on Sinemet and ropinerole. Being followed by neurologist -- will check with daughter when next follow up visit is scheduled. Advanced Planning: POLST in place: DNR, comfort measures. Discussed Hospice with patient, and she is not an appropriate candidate at this time. She wants to continue treatment, including PT and other therapy with the goal of hopefully slowing decline related to Parkinson's. Left voicemail with daughter/DPOA post visit. Follow up in 3-4 weeks. Time Spent: 30 minutes with greater than 50% of this done in counseling and coordination of care regarding UTI follow up and symptom burden, weighing benefits and burdens of different treatment options, and advanced care planning.
== END 2017-07-08 13:31 | disposition home or self-care (01) ==
LOC: PC 13:30
PROVIDERS: ATTEND Nurse Practitioner
DX: Z51.5 Encounter for palliative care (principal); N39.0 Urinary tract infection, site not specified; G20 Parkinson's disease; I10 Essential (primary) hypertension; E11.9 Type 2 diabetes mellitus without complications; E03.9 Hypothyroidism, unspecified; R29.6 Repeated falls; R27.0 Ataxia, unspecified; Z79.82 Long term (current) use of aspirin; R53.83 Other fatigue; R41.0 Disorientation, unspecified; R53.1 Weakness; Z66 Do not resuscitate

== ENCOUNTER 2017-08-09 16:54 | Outpatient (CLI) | payer MEDICARE, OTHER | END 2017-08-09 16:55 | disposition critical access hospital (66) | LOC: EMS 16:54 | PROVIDERS: ATTEND Surgery | DX: R41.82 Altered mental status, unspecified (principal); W18.30XA Fall on same level, unspecified, initial encounter; Y92.199 Unspecified place in other specified residential institution as the place of occurrence of the external cause | CPT/HCPCS: A0425; A0429 ==

== ENCOUNTER 2017-08-09 17:09 | Emergency (ER) | payer MEDICARE, OTHER ==
--- NOTE | 2017-08-09 17:44 | ED Physician Documentation ---
PD HPI Fall - Stated complaint Stated Complaint: GLF - CONFUSION - Chief complaint Chief Complaint: General - History obtained from History obtained from: Patient, Caregiver - History of Present Illness Mechanism of injury: Slipped (she says she felt some weakness and was unable to support herself with her walker, slumped to the floor and was unable to lift herself up. Found by caregivers on floor without obvious injury. She seemed a bit confused so EMS called and brought her here.) Fall distance: Standing position Where [facility] occurred: [facility] Timing - onset: Today Injury(ies) location: No: Head, Neck, Chest, Abdomen Associated symptoms: AMS (briefly per caregivers). No: LOC Worsens with: No: Movement, Palpation Contributing factors: No: Anticoagulated, Intoxicated Similar symptoms before: No diagnosis (has had episodes of general weakness at times, with slumping to floor or difficulty getting up, but usually is able to get herself up with walker or holding onto furniture/etc. No particular workup nor Dx.) Recently seen: Not recently seen Review of Systems Constitutional: denies: Fever, Chills Nose: denies: Rhinorrhea / runny nose, Congestion Throat: denies: Sore throat Cardiac: denies: Chest pain / pressure, Palpitations Respiratory: denies: Dyspnea, Cough GI: denies: Nausea, Vomiting, Diarrhea : reports: Incontinent. denies: Dysuria, Frequency Skin: denies: Abrasion (s), Laceration (s) Neurologic: denies: Focal weakness, Numbness, Headache, Head injury PD PAST MEDICAL HISTORY - Past Medical History Cardiovascular: Hypertension Respiratory: None Neuro: Parkinson's Endocrine/Autoimmune: Type 2 diabetes, HyPOthyroidism GI: GERD : None HEENT: None Psych: None Musculoskeletal: Osteoarthritis Derm: None - Past Surgical History Past Surgical History: Yes General: Other HEENT: Tonsil/Adenoidectomy - Present Medications Home Medications: Ambulatory Orders Medication Instructions Recorded Confirmed Aspirin Chewable [St 81 mg PO DAILY 04/18/17 07/04/17 Aspirin] Atenolol 25 mg PO DAILY 04/18/17 07/04/17 Atenolol 50 mg PO DAILY PM 04/18/17 07/04/17 Calcitonin,[place],Synthetic 1 spray CHINTAN DAILY 04/18/17 07/04/17 [Miacalcin] Calcium Carbonate [Tums (Calcium 1,000 mg PO DAILY 04/18/17 07/04/17 Carbonate 500mg)] Carbidopa/Levodopa [Carbidopa-Levo 1 each PO 0800,1200,1800 04/18/17 07/04/17 ER 50-200 Tab] Carbidopa/Levodopa 0.5 each PO 0800,1200,1800 04/18/17 07/04/17 [Carbidopa-Levodopa 25-100 Tab] Cholecalciferol (Vitamin D3) 4,000 unit PO DAILY 04/18/17 07/04/17 [Vitamin D3] Glipizide [Glipizide ER] 5 mg PO DAILY 04/18/17 07/04/17 Levothyroxine [Synthroid] 175 mcg PO QDAC 04/18/17 07/04/17 Lisinopril 20 mg PO DAILY 04/18/17 07/04/17 Meclizine HCl [Motion Sickness 25 mg PO QID PRN 04/18/17 07/04/17 Relief] Ropinirole HCl 1 mg PO 0800,1200,1800 04/18/17 07/04/17 Ranitidine HCl [Zantac] 150 mg PO BID 05/21/17 07/04/17 Acetaminophen 1,000 mg PO Q4H PRN 07/04/17 07/04/17 Loperamide [Imodium] 2 mg PO PRN PRN 07/04/17 07/04/17 Polyvinyl Alcohol [Artificial 2 drops EACHEYE Q2H 07/04/17 07/04/17 Tears] Sulfamethox/Trimeth 800/160 1 each PO BID #16 tablet 07/04/17 [Bactrim Ds 800/160] Cephalexin [Keflex] 500 mg PO TID #15 capsule 08/09/17 - Allergies Allergies/Adverse Reactions: Allergies Allergy/AdvReac Type Severity Reaction Status Date / Time ciprofloxacin [From Cipro] Allergy Unknown Verified 04/25/17 01:47 ciprofloxacin HCl * Allergy Unknown Verified 04/25/17 01:47 [From Cipro] hydromorphone HCl * Allergy Unknown Verified 04/25/17 01:47 [From Dilaudid] levofloxacin [From Levaquin] Allergy Unknown Verified 04/25/17 01:47 sertraline HCl * Allergy Unknown Verified 04/25/17 01:47 [From Zoloft] - Social History Does the pt smoke?: No Smoking Status: Never smoker Does the pt drink ETOH?: No Does the pt have substance abuse?: No - Immunizations Immunizations are current?: Yes - POLST Patient has POLST: Yes POLST Status: DNR PD ED PE NORMAL - General General: Alert and oriented X 3, No acute distress, Well developed/nourished, Other (some general shakiness c/w Parkinsons. ) - HEENT HEENT: Pharynx benign - Neck Neck: Supple, no meningeal sign, No adenopathy - Cardiac Cardiac: RRR, No murmur - Respiratory Respiratory: Clear bilaterally - Abdomen Abdomen: Soft, Non tender - Female Female : Deferred - Rectal Rectal: Deferred - Back Back: No CVA TTP - Derm Derm: Normal color, Warm and dry - Extremities Extremities: No tenderness to palpate, Normal ROM s pain - Neuro Neuro: Alert and oriented X 3, No motor deficit, Normal speech, Other (some general tremor.) Eye Opening: Spontaneous Motor: Obeys Commands Verbal: Oriented GCS Score: 15 - Psych Psych: Normal mood Results - Vitals Vitals: Vital Signs - 24 hr 08/09/17 08/09/17 17:11 19:36 Temperature 35.9 C L 36.6 C Heart Rate 69 74 Respiratory 18 16 Rate Blood Pressure 149/78 H 164/82 H O2 Saturation 98 100 Oxygen O2 Source Room air - Labs Labs: Laboratory Tests 08/09/17 08/09/17 08/09/17 18:28 18:28 18:45 WBC 9.5 RBC 3.58 L Hgb 9.8 L Hct 30.5 L MCV 85.4 MCH 27.5 MCHC 32.2 RDW 17.0 H Plt Count 424 MPV 5.8 L Neut # 6.1 Lymph # 2.3 [place] # 0.7 Eos # 0.3 Baso # 0.1 Absolute Nucleated RBC 0.00 Nucleated RBC % 0.0 Sodium 137 Potassium 3.7 Chloride 100 L Carbon Dioxide 30 Anion Gap 7.0 BUN 21 H Creatinine 0.6 Estimated GFR (MDRD) 96 Glucose 138 H Calcium 9.2 Total Bilirubin < 0.2 L AST 16 ALT < 10 L Alkaline Phosphatase 104 Total Protein 6.8 Albumin 3.1 L Globulin 3.7 Albumin/Globulin Ratio 0.8 L Lipase 15 L Urine Color YELLOW Urine Clarity CLOUDY Urine pH 6.5 Ur Specific Patterson 1.015 Urine Protein NEGATIVE Urine Glucose (UA) NEGATIVE Urine Ketones NEGATIVE Urine Occult Blood TRACE-INTA Urine Nitrite POSITIVE H Urine Bilirubin NEGATIVE Urine Urobilinogen 0.2 (NORMAL) Ur Leukocyte Esterase LARGE H Urine RBC TNTC H Urine WBC >25 H Ur Squamous Epith Cells FEW Squamous Urine Bacteria Many H Ur Microscopic Review INDICATED Urine Culture Comments INDICATED PD MEDICAL DECISION MAKING - ED course Complexity details: reviewed results, considered differential (she appears okay here. She remembers the feeling of slumping to floor, denies injury, and feels okay here. Will check some labs/urine. No apparent injury. ), d/w patient Departure - Departure Disposition: 01 Home, Self Care Clinical Impression: General weakness UTI (urinary tract infection) Qualifiers: Urinary tract infection type: acute cystitis Hematuria presence: without hematuria Qualified Code(s): N30.00 - Acute cystitis without hematuria Condition: Stable Record reviewed to determine appropriate education?: Yes Instructions: ED UTI Cystitis Female Follow-Up: RAHUL LONGO [Primary Care Provider] - Prescriptions: Cephalexin [Keflex] 500 mg PO TID #15 capsule Comments: Your basic blood tests appeared okay with some mild to moderate stable anemia. He did have some signs of a bladder infection. These are relatively common and may or may not contribute to your episode of weakness today. You look okay here. Will have you back to [facility] with prescription for cephalexin for the urinary tract infection. Other medications as usual. Follow-up with your primary care if persistent problems. Return as needed. Discharge Date/Time: 08/09/17 20:14
[2017-08-09 18:33] LABS: BASOPHILS # (AUTO) 0.1 10^3/uL (0.0-0.1); BASOPHILS % (AUTO) 0.7 %; EOSINOPHILS # (AUTO) 0.3 10^3/uL (0.0-0.7); EOSINOPHILS % (AUTO) 3.4 %; HCT - HEMATOCRIT 30.5 % (37.0-47.0); HGB - HEMOGLOBIN 9.8 g/dL (12.0-16.0); LYMPHOCYTES # (AUTO) 2.3 10^3/uL (1.5-3.5); LYMPHOCYTES % (AUTO) 24.6 %; MEAN CORPUSCULAR HEMOGLOBIN 27.5 pg (27.0-31.0); MEAN CORPUSCULAR HGB CONC 32.2 g/dL (32.0-36.0); MEAN CORPUSCULAR VOLUME 85.4 fL (81.0-99.0); MEAN PLATELET VOLUME 5.8 fL (7.9-10.8); MONOCYTES # (AUTO) 0.7 10^3/uL (0.0-1.0); NEUTROPHILS # (AUTO) 6.1 10^3/uL (1.5-6.6); NEUTROPHILS % (AUTO) 64.3 %; RED BLOOD COUNT 3.58 10^6/uL (4.20-5.40); UNCORRECTED WHITE BLOOD COUNT 9.5 x10^3/uL; WHITE BLOOD COUNT 9.5 x10^3/uL (4.8-10.8)
[2017-08-09 18:54] LABS: ALBUMIN/GLOBULIN RATIO 0.8 (1.0-2.2); BILIRUBIN,TOTAL < 0.2 mg/dL (0.2-1.0); BUN - BLOOD UREA NITROGEN 21 mg/dL (6-20); CALCIUM 9.2 mg/dL (8.5-10.3); CARBON DIOXIDE - CO2 30 mmol/L (21-32); CHLORIDE 100 mmol/L (101-111); CREATININE 0.6 mg/dL (0.4-1.0); GFR - MDRD 96 (>89); GLUCOSE 138 mg/dL (70-100); LIPASE 15 U/L (22-51); POTASSIUM 3.7 mmol/L (3.5-5.0); SODIUM 137 mmol/L (135-145); TOTAL PROTEIN 6.8 g/dL (6.7-8.2)
[2017-08-09 18:59] LABS: BILIRUBIN,URINE NEGATIVE (NEGATIVE); PH,URINE 6.5 PH (5.0-7.5)
[2017-08-09 19:00] LABS: UA w/ MICROSCOPIC CHARGE YES
[2017-08-09] MEDS ORDERED: cephALEXin 250 MG CAPSULE PO STA (19:10)
[2017-08-09 19:18] LABS: UR CULTURE IF IND INDICATED; WBC,URINE >25 /HPF (0-5)
[2017-08-09 19:47] VITALS: BP 164/82
== END 2017-08-09 20:14 | disposition home or self-care (01) ==
LOC: EDUNIT# → SUPCPDRO 17:09 → ED 17:09
DX: R53.1 Weakness (principal); N30.00 Acute cystitis without hematuria; D64.9 Anemia, unspecified; Z79.82 Long term (current) use of aspirin; I10 Essential (primary) hypertension; E11.9 Type 2 diabetes mellitus without complications; G20 Parkinson's disease; E03.9 Hypothyroidism, unspecified
CPT/HCPCS: 51701; 80053; 81001; 83690; 85025; 87086; 87181; 99283; A9270; 36415; 81003

== ENCOUNTER 2017-08-13 14:40 | Outpatient (CLI) | payer MEDICARE, OTHER ==
--- NOTE | 2017-08-13 17:13 | CONSULTATION NOTE ---
Palliative Care Follow Up - Referral Referring Provider: Reyes Lundy MD Time of Visit: 14:40 Referral setting: Assisted living (Seen in the patient's home setting, which is [facility], due to taxing and considerable effort to leave the home due to limited mobility and lack of balance secondary to advanced Parkinson 's disease.) - Information Sources Records reviewed: RN notes reviewed, Previous records reviewed History/Review of Systems obtained from: Patient, Family, Nursing Exam limitations: Clinical condition (Very soft, weak voice difficult to hear and understand. Perseveration (she likes to tell "little stories" in response to assessment questions). Significantly slow gait and slow movements.) - History of Present Illness Update Brief HPI Update: This is an 82-year-old woman with a long history of progressive Parkinson's disease as well as hypertension, DMII, hypthyroidism, recurrent UTIs and frequent falls. She also has a distant history of non-Hodgkin's lymphoma, including chemotherapy between 1985 and 1990. 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 She has frequent falls (multiple falls in a week is not unusual for her, per manager of customer billing) and altered mental status (eg, refusing PT which she normally really enjoys, increased confusion), and after a recent non-injury GLF on 08/09 she was sent to the ED and diagnosed with a UTI. She was sent home with Keflex 500mg TID x 5 days. Today during my scheduled visit she is initially on the toilet. Nursing takes her to the toilet every 2 hours and performs hygienic pericare for her. However , they report the patient continues to go to the toilet by herself, an issue because she does not perform pericare and this is likely a contributing factor to her recurrent UTIs. They have noted when she has a UTI her cognition alters and her falls increase. Her behaviors are changeable from day to day, at times cooperative, at other times refusing the activities she usually enjoys. For instance, last week she agreed to my visit, but once I arrived she refused the visit (she also wanted to get out to play Bingo). During today's visit, she reported no pain or discomfort and that she was feeling better since getting treatment for the UTI. She expressed concern was how much the palliative care visits costs (there is no co-pay). She also was concerned with the order the caregivers put on her clothing, because she has urine incontinence and is concerned about "dribbling" onto the back of her clothing or her shoes. She also expressed dissatisfaction that caregivers don't want to hear her "little stories." The patient is cognitively impaired and perseverates and speak very slowly, very low and quietly and it is extremely difficult to hear and understand her. Before I left she gave me a tour and explanation of the family photos on her wall. She reports dyspnea sometimes at night when she wakes up feeling anxious. She does not want to take anxiolytic because of the increased fall risk. We discussed the methods she uses to self-sooth, such as imaging. Today her she exhibited only a very mild, short episode of dyskinesia during this visit, in contrast to my last visit, when she displayed significant symptoms. She continues to participate in PT and she does take part in the facility's activities, particularly bingo. About one hour after my visit, the patient had a fall, was sent to ED and had a mildly displaced mid- to distal left clavicle fracture. See Palliative Care discussion. Social History - Living Situation Living arrangement: Assisted living ([facility]) Living Situation: With spouse/s.o., With caregiver(s) Support System: Daughter lives in [place] and son lives in [place]. Her partner's son and family live close by. He works as a [employer] in the facility. Medications/Allergies - Medications Home Medications: Ambulatory Orders Medication Instructions Recorded Confirmed Aspirin Chewable [St 81 mg PO DAILY 04/18/17 08/14/17 Aspirin] Atenolol 25 mg PO DAILY 04/18/17 08/14/17 Atenolol 50 mg PO DAILY PM 04/18/17 08/14/17 Calcitonin,[place],Synthetic 1 spray CHINTAN DAILY 04/18/17 08/14/17 [Miacalcin] Calcium Carbonate [Tums (Calcium 1,000 mg PO DAILY 04/18/17 08/14/17 Carbonate 500mg)] Carbidopa/Levodopa [Carbidopa-Levo 1 each PO 0800,1200,1800 04/18/17 08/14/17 ER 50-200 Tab] Carbidopa/Levodopa 0.5 each PO 0800,1200,1800 04/18/17 08/14/17 [Carbidopa-Levodopa 25-100 Tab] Cholecalciferol (Vitamin D3) 4,000 unit PO DAILY 04/18/17 08/14/17 [Vitamin D3] Glipizide [Glipizide ER] 5 mg PO DAILY 04/18/17 08/14/17 Levothyroxine [Synthroid] 175 mcg PO QDAC 04/18/17 08/14/17 Lisinopril 20 mg PO DAILY 04/18/17 08/14/17 Meclizine HCl [Motion Sickness 25 mg PO Q4H PRN 04/18/17 08/14/17 Relief] Ropinirole HCl 1 mg PO 0800,1200,1800 04/18/17 08/14/17 Ranitidine HCl [Zantac] 10 ml PO BID 05/21/17 08/14/17 Acetaminophen 31.25 ml PO Q4H PRN 07/04/17 08/14/17 Loperamide [Imodium] 2 mg PO PRN PRN 07/04/17 08/14/17 Polyvinyl Alcohol [Artificial 2 drops EACHEYE Q2H 07/04/17 08/14/17 Tears] Cephalexin [Keflex] 500 mg PO TID #15 capsule MDD for 08/09/17 08/14/17 5 days only - Allergies Allergies/Adverse Reactions: Allergies Allergy/AdvReac Type Severity Reaction Status Date / Time ciprofloxacin [From Cipro] Allergy Unknown Verified 04/25/17 01:47 ciprofloxacin HCl * Allergy Unknown Verified 04/25/17 01:47 [From Cipro] hydromorphone HCl * Allergy Unknown Verified 04/25/17 01:47 [From Dilaudid] levofloxacin [From Levaquin] Allergy Unknown Verified 04/25/17 01:47 sertraline HCl * Allergy Unknown Verified 04/25/17 01:47 [From Zoloft] Review of Systems - Constitutional Constitutional: reports: Weight stable (Monthly weight range between 140-143 lbs.). denies: Poor appetite - Eyes Eyes: reports: Other (dry eyes) - Cardiovascular Cardiovascular: denies: Chest pain, Edema, Exertional dyspnea - Respiratory Respiratory: denies: Cough, SOB at rest, SOB with exertion - Gastrointestinal Gastrointestinal: denies: Constipation, Diarrhea, Change in bowel habits - Genitourinary Genitourinary: reports: Frequency, Incontinence - Musculoskeletal Musculoskeletal: reports: Stiffness, Limited range of motion, Muscle weakness, Assistive devices (4ww walker; wheelchair), Other (When she has trouble with balance and mobility, it's usually the LLE) - Neurological Neurological: reports: General weakness, Abnormal gait, Other (very low and weak speaking voice) - Psychiatric Psychiatric: reports: Anxiety (wakes up at night with worries. Self-soothes) - Endocrine Endocrine: reports: Diabetes type 2, Hypothyroidism - Hematologic/Lymphatic Hematologic/Lymphatic: reports: Anemia (per blood work), Recurrent infections ( UTIs) Physical Exam - Vital Signs Temperature: 96.9 F Pulse Rate: 57 O2 Saturation: 98 Blood Pressure: 90/60 - Physical Exam General Appearance: positive: No acute distress, Alert Eyes Bilateral: positive: EOMI, No lid inflammation, Conjunctivae nml, No scleral icterus ENT: positive: Pharynx nml, No signs of dehydration, Purulent nasal drainage Neck: positive: Thyroid nml, No JVD, Trachea midline Cardiovascular: positive: Regular rate & rhythm, No murmur, No gallop Respiratory: positive: No respiratory distress, Breath sounds nml Skin: positive: No symptoms Extremities: positive: No pedal edema. negative: Full ROM Neurologic/Psychiatric: positive: Oriented x3, Weakness, Unintelligible speech ( low, soft voice, extremely hard to hear), Flat affect Palliative Care - POLST Patient has POLST: Yes POLST Status: DNR, Comfort Measures Pain: No pain Tiredness/Fatigue: Mild (1-3) Drowsiness/Sedation: None Nausea: None Depression: None Anxiety: Mild (1-3) (can wake up at night with anxiety) Dyspnea: Mild (1-3) (occasionally in the middle of the night, with anxiety.) Sleep: Variable sleep pattern Constipation: No Performance Status: Weak lower extremities, has frequent ground-level falls. Fall of 08/13/17 resulted in fracture of L clavicle. Has been participating in therapy. Nursing takes her to the toilet q2hrs and performs hygienic pericare, but patient continues to toilet herself too, with poor hygienic practices, admitting she's "stubborn" about changing. - Palliative Care Discussion: Patient's concern is having the care giving staff dress her in a certain order because she is worried about "dribbling" on her shoes or clothes due to her incontinence. When asked whether she was settling in at [facility], she responds "I don't see that I have any choice." She admits to missing being able to talk with her neighbors (at her house, where she had lived for decades prior to moving to assisted living). Nursing reports she is keen about playing bingo whenever it is offered. She expressed how much she likes seeing her partners' family and children but doesn't see them as much as she would like. The patient and I spoke about her frequent falls, and as I left I reminded her about fall safety. She had an OT session right after my visit, and had just finished OT and was using the walker inappropriately -- she pushed it out of the way and let go of it while reaching for the close door. At that instant she had an episode of Parkinson's freeze, the closet door shifted, she was unable to react, and she went down. She suffered a mildly displaced mid- to distal left clavicle fracture. She had no other acute injuries, was neurovascularly intact, and was sent home with Motrin or Tylenol as needed for pain and recommendation to follow up with PCP within one week and [facility] provider group within one week. I discussed this with the clinical nursing manager afterwards and she reports the main issue is the patient's lack of compliance and her determination to "do things on her own." The patient is given education about how to use the walker but is non-compliant. She also continues to toilet on her own, even as the facility is doing q2hr toilet checks. Now they are doing Q1hr checks. She reports the family 's hope is to keep the patient at [facility], because the next option is a long- term care facility, and the patient's wish is never to go to a shelter. Another option would be a dementia unit if cognitive function continues to decline. I also spoke with the daughter/DPOA, Ankit, who confirms that their goal is to keep her mother at [facility] and avoid a shelter. She does realize they might need to reconsider in the case of her mother's cognitive functioning continuing to decline, but for now they want her to remain at [facility]. Their main goal is to keep her comfortable. She believes her mother's motivation and what is driving her non-compliance is her desire to maintain her independence. The daughter believes the patient is interpreting education from the staff as "telling her what to do." The daughter's main concern is her mother's nutritional intake. She has supplied her with vegetable and fruit powder that she can add to water. She has also given her flaxseed oil to take daily. She notes that her mother just gnaws on food, for instance, chicken, gets the flavor and then spits it out. Some of the patient's teeth are loose and he is planning to take her to the dentist to sharpen them though I am unaware of this as a dental service. I will follow up with the facility about whether they can alter the texture of her food to make it easier for her to chew, e.g., mechanical soft. She reports her mother has gained 10 lbs, and the patient reported that too. The next regular monthly weight is due on 08/19/17. Impression and Recommendations - Palliative Care Impression: This is an 82-year-old woman with a long history of progressive Parkinson's disease, with cognitive impairment. She also has recurrent UTIs and frequent falls, both are associated with patient's non-compliance (of hygienic practices and improper use of her walker). She is currently on a regimen of Keflex antibiotics for the most recent UTI, and had another fall today resulting in a fractured L clavicle. Her risk of continued falls and infections, and their sequelae, is very high and she needs monitoring and coordination with the family and facility to determine if Assisted Living is able to provide the level of care she requires. Recommendations/Counseling Done: Recurrent UTIs: Complete Keflex 500mg TID x 5 days. Nursing toilets her Q2 hrs. Continue to encourage her to wait for nursing assistance rather than going on her own; she is non-compliant about hygienic pericare. Frequent falls, fractured L clavicle: Today she fractured her L clavicle after another GLF. Nursing reports that non-compliance (improper usage of 4-wheel walker) is the biggest issue here. She has a follow up appointment with her PCP on 08/15/17, and an orthopedic appointment on 08/20/17 at 14:15. Currently on liquid Tylenol and Motrin for pain control Advanced care planning: POLST in place: DNR and comfort measures. Patient's wish, and family's wish, is for her to remain at [facility]. Next step would likely be a terminal gauger supervisor care facility, or possibly dementia unit. Biggest issue is lack of compliance with 4WW usage and pericare/toileting. Family's goal is to have her remain at [facility] as long as they can provide the level of care needed. They want to honor her wish to not be "put in a shelter." The daughter is concerned about nutrition and is providing supplements such as flaxseed oil, vegetable and fruit powder to add to water. I will speak with the facility about the texture of her food; the patient has trouble chewing and swallowing meat. The daughter plans to take her to the dentist. Follow up later this week. Patient has appointment with her PCP Dr Lundy at 10:30 08/15/17. She has orthopedic surgeon consultation on 08/20/17 at 14;15. Time Spent: 60 minutes were spent with more than 50% of the time spent on counseling, education, and coordination of care, weight benefits and burdens of interventions. Provided anticipatory guidance.
== END 2017-08-13 14:41 | disposition home or self-care (01) ==
LOC: PC 14:40
PROVIDERS: ATTEND Nurse Practitioner
DX: Z51.5 Encounter for palliative care (principal); G20 Parkinson's disease; F02.80 Dementia in other diseases classified elsewhere, unspecified severity, without behavioral disturbance, psychotic disturbance, mood disturbance, and anxiety; N39.0 Urinary tract infection, site not specified; R29.6 Repeated falls; Z91.81 History of falling; Z79.82 Long term (current) use of aspirin; Z79.4 Long term (current) use of insulin; Z79.84 Long term (current) use of oral hypoglycemic drugs; M62.81 Muscle weakness (generalized); F41.9 Anxiety disorder, unspecified; E11.9 Type 2 diabetes mellitus without complications; G31.84 Mild cognitive impairment of uncertain or unknown etiology; Z66 Do not resuscitate

== ENCOUNTER 2017-08-13 17:06 | Outpatient (CLI) | payer MEDICARE, OTHER | END 2017-08-13 17:07 | disposition critical access hospital (66) | LOC: EMS 17:06 | PROVIDERS: ATTEND Surgery | DX: M25.512 Pain in left shoulder (principal); W18.39XA Other fall on same level, initial encounter; Y92.092 Bedroom in other non-institutional residence as the place of occurrence of the external cause | CPT/HCPCS: A0425; A0429 ==

== ENCOUNTER 2017-08-13 17:21 | Emergency (ER) | payer MEDICARE, OTHER ==
--- NOTE | 2017-08-13 18:03 | ED Physician Documentation ---
History of Present Illness - Stated complaint Stated Complaint: GLF - Chief complaint Chief Complaint: Ext Problem - History obtained from History obtained from: Patient, EMS - History of Present Illness Timing: Today, How many hours ago (1) Improved by: rest Worsened by: movement - Additonal information Additional information: GLF, L clavicle pain. pt with history of parkinsons. No other injuries Review of Systems Constitutional: denies: Fever GI: denies: Vomiting Musculoskeletal: denies: Neck pain, Back pain Neurologic: denies: Focal weakness, Numbness, Headache PD PAST MEDICAL HISTORY - Past Medical History Cardiovascular: Hypertension Respiratory: None Neuro: Parkinson's Endocrine/Autoimmune: Type 2 diabetes, HyPOthyroidism GI: GERD : None HEENT: None Psych: None Musculoskeletal: Osteoarthritis Derm: None - Past Surgical History Past Surgical History: Yes General: Other HEENT: Tonsil/Adenoidectomy - Present Medications Home Medications: Ambulatory Orders Medication Instructions Recorded Confirmed Aspirin Chewable [St 81 mg PO DAILY 04/18/17 08/13/17 Aspirin] Atenolol 25 mg PO DAILY 04/18/17 08/13/17 Atenolol 50 mg PO DAILY PM 04/18/17 08/13/17 Calcitonin,[place],Synthetic 1 spray CHINTAN DAILY 04/18/17 08/13/17 [Miacalcin] Calcium Carbonate [Tums (Calcium 1,000 mg PO DAILY 04/18/17 08/13/17 Carbonate 500mg)] Carbidopa/Levodopa [Carbidopa-Levo 1 each PO 0800,1200,1800 04/18/17 08/13/17 ER 50-200 Tab] Carbidopa/Levodopa 0.5 each PO 0800,1200,1800 04/18/17 08/13/17 [Carbidopa-Levodopa 25-100 Tab] Cholecalciferol (Vitamin D3) 4,000 unit PO DAILY 04/18/17 08/13/17 [Vitamin D3] Glipizide [Glipizide ER] 5 mg PO DAILY 04/18/17 08/13/17 Levothyroxine [Synthroid] 175 mcg PO QDAC 04/18/17 08/13/17 Lisinopril 20 mg PO DAILY 04/18/17 08/13/17 Meclizine HCl [Motion Sickness 25 mg PO QID PRN 04/18/17 08/13/17 Relief] Ropinirole HCl 1 mg PO 0800,1200,1800 04/18/17 08/13/17 Ranitidine HCl [Zantac] 150 mg PO BID 05/21/17 08/13/17 Acetaminophen 1,000 mg PO Q4H PRN 07/04/17 08/13/17 Loperamide [Imodium] 2 mg PO PRN PRN 07/04/17 08/13/17 Polyvinyl Alcohol [Artificial 2 drops EACHEYE Q2H 07/04/17 08/13/17 Tears] Cephalexin [Keflex] 500 mg PO TID #15 capsule 08/09/17 08/13/17 - Allergies Allergies/Adverse Reactions: Allergies Allergy/AdvReac Type Severity Reaction Status Date / Time ciprofloxacin [From Cipro] Allergy Unknown Verified 04/25/17 01:47 ciprofloxacin HCl * Allergy Unknown Verified 04/25/17 01:47 [From Cipro] hydromorphone HCl * Allergy Unknown Verified 04/25/17 01:47 [From Dilaudid] levofloxacin [From Levaquin] Allergy Unknown Verified 04/25/17 01:47 sertraline HCl * Allergy Unknown Verified 04/25/17 01:47 [From Zoloft] - Social History Does the pt smoke?: No Smoking Status: Never smoker Does the pt drink ETOH?: No Does the pt have substance abuse?: No - Immunizations Immunizations are current?: Yes - POLST Patient has POLST: Yes POLST Status: DNR PD ED PE NORMAL - Vitals Vital signs reviewed: Yes - General General: Alert and oriented X 3, No acute distress, Well developed/nourished - HEENT HEENT: Atraumatic, PERRL, Ears normal, Moist mucous membranes, Pharynx benign - Neck Neck: Supple, no meningeal sign, No bony TTP - Cardiac Cardiac: RRR - Respiratory Respiratory: No respiratory distress, Clear bilaterally - Abdomen Abdomen: Soft, Non tender, Non distended - Back Back: No spinal TTP - Derm Derm: Warm and dry - Extremities Extremities: Other (TTP over the L clavicle. No pain over the L shoulder or L arm. o/w normal exam of the extremities) - Neuro Neuro: Alert and oriented X 3 Eye Opening: Spontaneous Motor: Obeys Commands Verbal: Oriented GCS Score: 15 - Psych Psych: Normal mood, Normal affect Results - Vitals Vitals: Vital Signs - 24 hr 08/13/17 08/13/17 17:23 19:34 Temperature 36.1 C L Heart Rate 68 74 Respiratory 20 16 Rate Blood Pressure 116/60 138/75 H O2 Saturation 96 97 Oxygen O2 Source Room air - Rads (name of study) L clavicle Radiology: Prelim report reviewed, EMP read contemporaneously, See rad report ( Mildly displaced mid to distal clavicle fracture. ) PD MEDICAL DECISION MAKING - ED course Complexity details: reviewed results, re-evaluated patient, considered differential, d/w patient ED course: Patient is an 82-year-old female presents to the emergency department after a ground-level fall. Has a left clavicle fracture. Placed in a sling and will follow up with her doctor and orthopedics. No other acute injuries. Neurovascularly intact including the axillary nerve. No evidence of head, neck or back injury. No hip injuries. Patient counseled regarding signs and symptoms for which I believe and urgent re-evaluation would be necessary. Patient with good understanding of and agreement to plan and is comfortable going home at this time This document was made in part using voice recognition software. While efforts are made to proofread this document, sound alike and grammatical errors may occur. Departure - Departure Disposition: 01 Home, Self Care Clinical Impression: Clavicle fracture Qualifiers: Encounter type: initial encounter Clavicle location: shaft Fracture type: closed Fracture alignment: displaced Laterality: left Qualified Code(s): S42.022A - Displaced fracture of shaft of left clavicle, initial encounter for closed fracture Condition: Good Instructions: ED Fx Clavicle Follow-Up: RAHUL LONGO [Primary Care Provider] - Within 1 week [facility] [Provider Group] - Within 1 week Comments: You can use motrin or tylenol as needed for pain. Your clavicle is broken today. This should heal well. Discharge Date/Time: 08/13/17 19:40
[2017-08-13] MEDS ORDERED: ACETAMINOPHEN 500 MG TABLET PO STA (18:38)
--- NOTE | 2017-08-13 18:54 | XRAY Preliminary Report ---
Exam: XR CLAVICLE LT IMPRESSION: Mildly displaced mid to distal clavicle fracture. [facility] SITE ID: [id number]
--- NOTE | 2017-08-13 18:56 | XRAY Report ---
EXAM: LEFT CLAVICLE RADIOGRAPHY EXAM DATE: 08/13/2017 06:23 PM. CLINICAL HISTORY: Fall, L clavicle pain. COMPARISON: None. TECHNIQUE: 2 views. FINDINGS: Bones: Mildly displaced fracture at the mid to distal clavicle. Displacement measures approximately 5 mm. Joints: No dislocation identified. Acromioclavicular joint arthropathy. Soft Tissues: Surgical clips noted in the region of the thyroid. IMPRESSION: Mildly displaced mid to distal clavicle fracture. [facility] Referring Provider Line: [phone] SITE ID: [id number]
[2017-08-13 19:35] VITALS: BP 138/75
== END 2017-08-13 19:40 | disposition home or self-care (01) ==
LOC: EDUNIT# → ED 17:21
DX: S42.022A Displaced fracture of shaft of left clavicle, initial encounter for closed fracture (principal); W18.30XA Fall on same level, unspecified, initial encounter; I10 Essential (primary) hypertension; G20 Parkinson's disease; E11.9 Type 2 diabetes mellitus without complications; E03.9 Hypothyroidism, unspecified; Z79.82 Long term (current) use of aspirin
CPT/HCPCS: 73000; 99283; 99284; A9270

== ENCOUNTER 2017-09-13 22:06 | Outpatient (CLI) | payer MEDICARE, OTHER | END 2017-09-13 22:07 | disposition short-term general hospital (02) | LOC: EMS 22:06 | PROVIDERS: ATTEND Surgery | DX: S01.01XA Laceration without foreign body of scalp, initial encounter (principal); W05.0XXA Fall from non-moving wheelchair, initial encounter; W22.8XXA Striking against or struck by other objects, initial encounter; Y92.099 Unspecified place in other non-institutional residence as the place of occurrence of the external cause | CPT/HCPCS: A0425; A0429; A0888 ==

== ENCOUNTER 2017-09-19 09:20 | Outpatient (CLI) | payer MEDICARE, OTHER ==
--- NOTE | 2017-09-19 13:12 | XRAY Report ---
DATE OF SERVICE: 09/19/2017 TWO-VIEW LEFT SHOULDER: 09/19/2017 CLINICAL INDICATION: Clavicle fracture. FINDINGS: Frontal and scapular Y views of the left shoulder demonstrate a fracture of the distal third of the clavicle, with inferior displacement and mild foreshortening. Mild degenerative changes are seen in the acromioclavicular and glenohumeral joints. No other fracture is appreciated. IMPRESSION: INFERIORLY DISPLACED AND MILDLY FORESHORTENED FRACTURE OF THE DISTAL THIRD OF THE CLAVICLE. TD: 09/19/2017 13:10
== END 2017-09-19 09:21 | disposition home or self-care (01) ==
LOC: DI 09:20
PROVIDERS: ATTEND Family Medicine
DX: S42.032A Displaced fracture of lateral end of left clavicle, initial encounter for closed fracture (principal)

== ENCOUNTER 2017-10-08 15:05 | Outpatient (CLI) | payer MEDICARE, OTHER ==
--- NOTE | 2017-10-08 19:25 | CONSULTATION NOTE ---
Palliative Care Follow Up - Referral Referring Provider: Reyes Lundy MD Time of Visit: 10/08/2017. 15:05 - 15:50 Referral setting: Assisted living (Seen in home setting due to taxing and considerable effort required to leave the home due to limited mobility and lack of balance secondary to advanced parkinson's disease.) Referral Reason: weakness bilateral legs secondary to Parkinson's - Information Sources Records reviewed: RN notes reviewed, Previous records reviewed History/Review of Systems obtained from: Patient, Nursing Exam limitations: Clinical condition (soft, weak voice, difficluty to hear. Perseveration.) - History of Present Illness Update Brief HPI Update: [id number] for recertification of physical therapy and occupational therapy The patient has advanced Parkinson's and related dementia, with balance and gait issues and a h/o frequent falls. She would benefit from continued Physical Therapy and Occupational Therapy treatment to increase strength, balance, joint mobility and safety. [facility] is the organization which is managing her therapy. This is an 82-year-old woman with a long history of progressive Parkinson's disease and Parkinson's-related dementia. PMH: hypertension, DM 2, hypothyroidism, recurrent UTIs and frequent falls. She has a distant history of non-Hodgkin's lymphoma, including chemotherapy between 1985 and 1990. She fell just after [place] and fractured her L clavicle, and has been participating in OT and PT since then. She has no complaints of shoulder/ clavicle pain but does hold her L arm in a guarded position when she is sitting in her recliner. When she is ambulating with her walker, she does not favor the L arm. He has a very careful and slow gait. Caregiving staff reports a positive urine dip and some confusion on the part of the patient. During my assessment she is at her baseline LOC, with slow, deliberate, nearly inaudible speech patterns. A urine dip ordered by the facility was positive; I ordered a urinary analysis with C&S if indicated and CBC w/differential. Social History - Living Situation Living arrangement: Assisted living ([facility]) Living Situation: With spouse/s.o., With caregiver(s) Support System: Daughter lives in [place] and son lives in [place]. Her partner's son and family live close by and he (son) works as a physical therapty associate in the facility. Medications/Allergies - Medications Home Medications: Ambulatory Orders Medication Instructions Recorded Confirmed Aspirin Chewable [St 81 mg PO DAILY 04/18/17 10/09/17 Aspirin] Atenolol 25 mg PO DAILY 04/18/17 10/09/17 Atenolol 50 mg PO DAILY PM 04/18/17 10/09/17 Calcitonin,[place],Synthetic 1 spray CHINTAN DAILY 04/18/17 10/09/17 [Miacalcin] Calcium Carbonate [Tums (Calcium 1,000 mg PO DAILY 04/18/17 10/09/17 Carbonate 500mg)] Carbidopa/Levodopa [Carbidopa-Levo 1 each PO 0800,1200,1800 04/18/17 10/09/17 ER 50-200 Tab] Carbidopa/Levodopa 0.5 each PO 0800,1200,1800 04/18/17 10/09/17 [Carbidopa-Levodopa 25-100 Tab] Cholecalciferol (Vitamin D3) 4,000 unit PO DAILY 04/18/17 10/09/17 [Vitamin D3] Glipizide [Glipizide ER] 5 mg PO DAILY 04/18/17 10/09/17 Levothyroxine [Synthroid] 175 mcg PO QDAC 04/18/17 10/09/17 Lisinopril 20 mg PO DAILY 04/18/17 10/09/17 Meclizine HCl [Motion Sickness 25 mg PO Q4H PRN 04/18/17 10/09/17 Relief] Ropinirole HCl 1 mg PO 0800,1200,1800 04/18/17 10/09/17 Ranitidine HCl [Zantac] 10 ml PO BID 05/21/17 10/09/17 Acetaminophen 31.25 ml PO Q4H PRN 07/04/17 10/09/17 Loperamide [Imodium] 2 mg PO PRN PRN 07/04/17 10/09/17 Polyvinyl Alcohol [Artificial 2 drops EACHEYE Q2H 07/04/17 10/09/17 Tears] Cephalexin [Keflex] 250 mg PO Q6H MDD for 10 days 10/09/17 10/09/17 starting 10/09/17 Ferrous Sulfate 325 mg PO DAILY MDD stop on 10/09/17 10/09/17 10/15/2017 Ibuprofen 400 mg PO Q8H PRN 10/09/17 10/09/17 Simethicone [Gas Relief] 40 mg PO PRN PRN 10/09/17 10/09/17 - Allergies Allergies/Adverse Reactions: Allergies Allergy/AdvReac Type Severity Reaction Status Date / Time ciprofloxacin [From Cipro] Allergy Unknown Verified 04/25/17 01:47 ciprofloxacin HCl * Allergy Unknown Verified 04/25/17 01:47 [From Cipro] hydromorphone HCl * Allergy Unknown Verified 04/25/17 01:47 [From Dilaudid] levofloxacin [From Levaquin] Allergy Unknown Verified 04/25/17 01:47 sertraline HCl * Allergy Unknown Verified 04/25/17 01:47 [From Zoloft] Review of Systems - Constitutional Constitutional: reports: Weakness, Weight stable (140.5 lbs 09/19/17. 142 lbs 08/19. 140.0 lbs 07/19/17. 143.5 lbs 06/19/17. 141 lbs 05/19/17.). denies: Poor appetite - Cardiovascular Cardiovascular: denies: Chest pain - Respiratory Respiratory: reports: SOB at rest (occasional, while in bed). denies: SOB with exertion - Gastrointestinal Gastrointestinal: denies: Constipation - Genitourinary Genitourinary: denies: Dysuria - Musculoskeletal Musculoskeletal: reports: Stiffness, Limited range of motion, Muscle weakness, Assistive devices (wheelchair and 4WW), Other (h/o frequent falls) - Neurological Neurological: reports: Memory problems, Abnormal gait (slow, careful, Parkinson' s "freeze") - Psychiatric Psychiatric: reports: Anxiety - Endocrine Endocrine: reports: Diabetes type 2, Hypothyroidism - Hematologic/Lymphatic Hematologic/Lymphatic: reports: Recurrent infections (h/o frequent UTIs) Physical Exam - Vital Signs Temperature: 96.4 F Pulse Rate: 70 O2 Saturation: 97 Blood Pressure: 115/66 - Physical Exam General Appearance: positive: Mild distress (became tearful when speaking of her partner now living separately from her) Eyes Bilateral: positive: No lid inflammation, No scleral icterus ENT: positive: No signs of dehydration Neck: positive: No JVD, Trachea midline Cardiovascular: positive: Regular rate & rhythm, No murmur, No gallop Respiratory: positive: Chest non-tender, No respiratory distress, Breath sounds nml Skin: positive: No symptoms Extremities: positive: Pedal edema (minimal ankle edema) Neurologic/Psychiatric: positive: Sensation nml, Disoriented to time, Weakness, Unintelligible speech (low, nearly inaudible verbalization, poor articulation), Flat affect. negative: Motor nml (ataxia when seated in recliner) Palliative Care - POLST Patient has POLST: Yes POLST Status: DNR, Comfort Measures Pain: Pain improved (clavicle pain improved) Anxiety: Mild (1-3) (regarding her partner being moved to a different apartment) - Palliative Care Discussion: The patient lives in an apartment in this assisted living facility with her domestic partner of 20+ years. The patient's partner recently requested relocation to a separate apartment due to stress related to medical conditions, both his and the patient's. The partner has requested to keep a separate apartment as he finds it less stressful, including not having to share a bathroom. This change has been emotionally difficult for the patient and as she started discussing it, she became agitated and tearful. She related how she had wept when he wasn't there with her and how upsetting it was for her. Nursing later reported to me that her distress was in part because she thought he was "seeing someone else," and the staff reassured her this was not the case , and that helped her calm down. The patient said that she doesn't totally understand what is going on, but did understand that they will be able to see and visit each other. She appears to be making progress in adjusting to this unexpected change in her living situation. Nursing staff reports that they continue to see each other in the common areas and sit together. Impression and Recommendations - Palliative Care Impression: This is an 82-year-old woman with a long history of progressive Parkinson's disease, with cognitive impairment, and h/o recurrent UTIs and frequent falls, and may have a current infection, empiric Keflex was initiated. She would benefit from continued PT and OT for mobility, strength, and improving balance secondary to her advancing Parkinson's symptoms. Recommendations/Counseling Done: Recurrent UTIs: Urine dip positive, ordered UA with C&S and CBC with differential. Empiric Keflex was ordered presumably by PCP, initiated 10/09/17: Keflex 250mg q6h x 10 days. Parkinson's disease with frequent falls: Recertified for continuation of PT and OT for increasing strength, mobility, and balance. Continue ropinerole and Sinemet. Anemia: Ferrous sulfate previously prescribed: 325mg daily starting 08/22/17 through 10/15/17. Advanced care planning: POLST in place, DNR and comfort. Goal is to remain at [facility]. Her long-term domestic partner is in the process of relocating to a separate apartment at his request, which has caused some anxiety and distress for the patient. Monitor this in follow up visit. Continue palliative care oversight and monitoring for transition to Hospice when appropriate. Follow up 4-6 weeks. Time Spent: 45 minutes were spent with more than 50% of the time spent on counseling, education, and coordination of care.
== END 2017-10-08 15:06 | disposition home or self-care (01) ==
LOC: PC 15:05
PROVIDERS: ATTEND Nurse Practitioner
DX: Z51.5 Encounter for palliative care (principal); N39.0 Urinary tract infection, site not specified; G20 Parkinson's disease; F02.80 Dementia in other diseases classified elsewhere, unspecified severity, without behavioral disturbance, psychotic disturbance, mood disturbance, and anxiety; Z91.81 History of falling; D64.9 Anemia, unspecified; I10 Essential (primary) hypertension; E11.9 Type 2 diabetes mellitus without complications; Z79.82 Long term (current) use of aspirin; M62.81 Muscle weakness (generalized); F41.9 Anxiety disorder, unspecified; E03.9 Hypothyroidism, unspecified; Z66 Do not resuscitate

== ENCOUNTER 2017-10-24 10:25 | Outpatient (CLI) | payer MEDICARE, OTHER ==
--- NOTE | 2017-10-24 14:55 | XRAY Report ---
COMPLETE CERVICAL SPINE: 10/24/2017 CLINICAL INDICATION: Neck pain status post fall. FINDINGS: AP, lateral, oblique, odontoid views of the cervical spine demonstrate moderate degenerative disk and facet disease. The prevertebral soft tissues are unremarkable. There is no evidence of acute fracture in the cervical spine. Displaced left clavicle fracture is noted, with callus formation. Surgical clips are present in the anterior neck. IMPRESSION: MODERATE DEGENERATIVE CHANGES. NO EVIDENCE OF ACUTE FRACTURE OF THE CERVICAL SPINE. TD: 10/24/2017 14:54
== END 2017-10-24 10:26 | disposition home or self-care (01) ==
LOC: DI.N 10:25
PROVIDERS: ATTEND Family Medicine
DX: M50.30 Other cervical disc degeneration, unspecified cervical region (principal); M47.892 Other spondylosis, cervical region
CPT/HCPCS: 72050